=== PATIENT | female | born 1960 | race Caucasian/White ===

== ENCOUNTER 2018-03-05 11:06 | Day surgery (SDC) | payer OTHER, SELFPAY ==
--- NOTE | 2018-02-27 07:22 | EKG12_ITS ---
Test Reason : PREOP Blood Pressure : / mmHG Vent. Rate : 069 BPM Atrial Rate : 069 BPM P-R Int : 188 ms QRS Dur : 108 ms QT Int : 456 ms P-R-T Axes : 045 -20 063 degrees QTc Int : 488 ms Normal sinus rhythm Incomplete left bundle branch block Moderate voltage criteria for LVH, may be normal variant Nonspecific T wave abnormality Prolonged QT Abnormal ECG Confirmed by DELIO ROSA, ARASELI ([id number]), web editor ANGELA POTTER ([id number]) on 02/28/2018 11:34:04 AM Referred By: Jonathan Hopkins Confirmed By:ARASELI KEBEDE MD
[2018-02-27 08:48] LABS: Hematocrit 33.8 % (37-47); Hemoglobin 11.1 g/dl (12.0-15.0); Mean Corp Hgb Conc 32.8 g/gl (32-36); Mean Corpuscular Hgb 30.2 pg (27.0-32.0); Mean Corpuscular Volume 91.8 fL (81-99); Mean Platelet Vol. 9.8 fl (6.2-12.0); Platelet Count 221 K/mm3 (150-450); RBC Distribution Width CV 18.3 % (11.6-14.6); RBC Distribution Width SD 58.7 fl (35.1-43.9); Red Blood Count 3.68 M/mm3 (4.2-5.4); Scan Indicated on CBC? Y/N NO; White Blood Count 5.2 K/mm3 (4.4-11.0)
[2018-02-27 09:11] LABS: Anion Gap 9 (5-15); BUN 13 mg/dL (7-18); BUN/Creat Ratio 19.5 RATIO (10-20); Calcium,Total 9.2 mg/dL (8.5-10.1); Chloride 105 mmol/L (98-107); Creatinine, Serum 0.66 mg/dL (0.55-1.02); EST Glomerular Filtration Rate 98 mL/min (>60); Est Glom Filt Rate - Afr Amer 118 mL/min (>60); Glucose 97 mg/dL (74-106); Potassium 3.2 mmol/L (3.5-5.1); Sodium Level 141 mmol/L (136-145)
[2018-03-05] VITALS (10 sets, daily range): BP systolic 103–129; BP diastolic 63–70; PULSE 64–85; RESP 16–18; TEMP 36–36.9; O2SAT 92–100; BMI 29.7
[2018-03-05] MEDS: Cefazolin 2 GM in 0.9% Normal Saline 100 ML IV (12:50)
--- NOTE | 2018-03-05 12:50 | BREAST_PTH ---
PATIENT: JUANA SMART LOC: [facility] [place] U#:[id number] AGE/SX: 57/F ROOM: RE03/05/[address]: Dr. Jonathan Hopkins MD : 1960 BED: DIS: 03/06/2018 SPEC #: [id number] RECD: 03/05/18 14:24 STATUS: BRIDGET CRISPIN #: [id number] LAKESHIA: 03/05/18 12:[address]: Jonathan Hopkins DEPT: SURGICAL PATHOLOGY RECD BY: Gilmar Boateng ENTERED: 03/05/18 14:56 SP TYPE: BREAST OTHR DR: Dr. 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 See cancer checklist below. AM:antolin 03/10/18 COMMENT INVASIVE BREAST CANCER SUMMARY: Specimen: Total breast with axillary lymph nodes Procedure: Radical mastectomy Specimen integrity: Single intact specimen. Specimen size: 24 x 23 x 5 cm Specimen laterality: Left breast Invasive tumor size: Larges focus 2 x 1 x 1 cm Smaller focus 1.5 x 1 mm Tumor focality: Two foci of invasive carcinoma Macroscopic and Microscopic extent of tumor: Skin: Free of carcinoma Nipple: Microscopic focus of ductal carcinoma (1.5 x 1 mm), see above. Skeletal muscle: Not present Histologic type of invasive carcinoma: Invasive ductal carcinoma Histologic Grade (Mila grade): Glandular/tubular differentiation score: 3 Nuclear pleomorphism score: 3 Mitotic count score: 1 Overall grade: Grade 2-3 (total score of 7) Margins: Uninvolved by invasive carcinoma. Distance from closest (posterior) margin ? 2.5 cm Lymph-Vascular invasion: Not identified Dermal lymph-vascular invasion: Not identified Ductal carcinoma in situ (DCIS): Not identified Lobular carcinoma in situ (LCIS): Not present Lymph nodes: Number of sentinel lymph nodes examined - 0 Total number of lymph nodes examined (sentinel and nonsentinel) ? 11 Number of lymph nodes with macrometastases ? 1 (2.2 cm in greatest dimension). No evidence of extranodal extension Number of lymph nodes with isolated tumor cels - 0 Microcalcifications ? focally present in non-neoplastic tissue Treatment effect ? unknown Additional pathologic findings: Fibrocystic change and focal intraductal hyperplasia without atypia. Ancillary studies: Previously performed on same tumor ([id number] / [id number]). ER: positive (>95% of tumor cells) FL: positive (>95% of tumor cells) Her2 evin: 0 ([facility]) PATHOLOGIC STAGE: pT1c N1a Mx The above summary is in compliance with [employer] [place] [employer] (CAP) Cancer Protocols Checklist and [place] Joint Committee on Cancer (AJCC), Staging Manual, 8th Ed. The mastectomy specimen contains two foci of invasive ductal carcinoma. The largest measures 2 cm in greatest dimension and is located 2.5 cm from the closest posterior margin. The smaller focus is present in the section of the nipple and measures 1.5 mm in greatest dimension. This smaller focus of invasive ductal carcinoma is not noted in the skin or the dermal lymphatics. Case is discussed with Dr. Doyle 04/16/18. MICROSCOPIC DESCRIPTION Slides are reviewed. GROSS DESCRIPTION Received in fixative is one container labeled with the patient's name and designated left breast and axillary contents. The specimen consists of a radical mastectomy specimen consisting of breast tissue and axillary tail tissue. The breast tissue measures 23 x 24 x 5 cm. The overlying skin ellipse measures 20 x 7 cm. The nipple measures up to 2.5 cm in greatest dimension and is inverted. The skin surface shows blue dye discoloration. The axillary tail measures 10 x 8 x 3 cm. The resection margins are inked as follows: superior margin ? blue, inferior margin ? green, medial margin ? red, lateral margin ? orange, posterior surface ? black. Sections of the axillary tail tissue reveal multiple lymph nodes. The largest lymph node measures 3.5 cm in greatest dimension. The lymph nodes are submitted in entirety as follows: 1 & 2 ? one serially sectioned lymph node, 3 & 4 ? one serially sectioned lymph node, 5 & 6 ? one bisected lymph node, 7 ? one bisected lymph node, 8 - one bisected lymph node, 9 ? five lymph nodes, 10 - one bisected lymph node. More dictation will follow after overnight fixation. / SJ:antolin 03/05/18 Serial sections of breast tissue reveal a jensen, indurated mass in the central to inferior portion of the breast tissue measuring 2 x 1 x 1 cm. This mass is 2.5 cm away from the closest posterior margin. Blue dye discoloration is noted in the mass. Sections of the rest of the specimen reveal jensen-yellow adipose cut surfaces mixed with jensen-white fibrous area. No additional mass lesion is identified. More sections are submitted as follows: 11 ? nipple, entirely submitted, 12 ? perpendicular medial, lateral and posterior margin, 13 ? perpendicular medial, lateral margin and skin, 14-18 ? tumor, entirely submitted, 19 ? education courses sales representative section adjacent to the tumor, 20-22 ? education courses sales representative sections away from the tumor. Sections will be submitted after overnight fixation. / SJ:antolin 03/06/18 TC:0 CPT: 82209
--- NOTE | 2018-03-05 12:50 | BREAST_PTH ---
PATIENT: JUANA SMART [place] [facility] [place][id number] AGE/SX: 57/F ROOM: RE03/05/[address]: Dr. Jonathan Hopkins MD : 1960 BED: DIS: 03/06/2018 SPEC #: [id number] RECD: 03/05/18 14:24 STATUS: BRIDGET CRISPIN #: [id number] LAKESHIA: 03/05/18 12:[address]: Jonathan Hopkins DEPT: SURGICAL PATHOLOGY RECD BY: Gilmar Boateng ENTERED: 03/05/18 14:56 SP TYPE: BREAST OTHR DR: Dr. 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 See cancer checklist below. AM:antolin 03/10/18 COMMENT INVASIVE BREAST CANCER SUMMARY: Specimen: Total breast with axillary lymph nodes Procedure: Radical mastectomy Specimen integrity: Single intact specimen. Specimen size: 24 x 23 x 5 cm Specimen laterality: Left breast Invasive tumor size: Larges focus 2 x 1 x 1 cm Smaller focus 1.5 x 1 mm Tumor focality: Two foci of invasive carcinoma Macroscopic and Microscopic extent of tumor: Skin: Free of carcinoma Nipple: Microscopic focus of ductal carcinoma (1.5 x 1 mm), see above. Skeletal muscle: Not present Histologic type of invasive carcinoma: Invasive ductal carcinoma Histologic Grade (Mila grade): Glandular/tubular differentiation score: 3 Nuclear pleomorphism score: 3 Mitotic count score: 1 Overall grade: Grade 2-3 (total score of 7) Margins: Uninvolved by invasive carcinoma. Distance from closest (posterior) margin ? 2.5 cm Lymph-Vascular invasion: Not identified Dermal lymph-vascular invasion: Not identified Ductal carcinoma in situ (DCIS): Not identified Lobular carcinoma in situ (LCIS): Not present Lymph nodes: Number of sentinel lymph nodes examined - 0 Total number of lymph nodes examined (sentinel and nonsentinel) ? 11 Number of lymph nodes with macrometastases ? 1 (2.2 cm in greatest dimension). No evidence of extranodal extension Number of lymph nodes with isolated tumor cels - 0 Microcalcifications ? focally present in non-neoplastic tissue Treatment effect ? unknown Additional pathologic findings: Fibrocystic change and focal intraductal hyperplasia without atypia. Ancillary studies: Previously performed on same tumor ([id number] / [id number]). ER: positive (>95% of tumor cells) CO: positive (>95% of tumor cells) Her2 evin: 0 ([facility]) PATHOLOGIC STAGE: pT1c N1a Mx The above summary is in compliance with [employer] [place] [employer] (CAP) Cancer Protocols Checklist and [place] Joint Committee on Cancer (AJCC), Staging Manual, 8th Ed. The mastectomy specimen contains two foci of invasive ductal carcinoma. The largest measures 2 cm in greatest dimension and is located 2.5 cm from the closest posterior margin. The smaller focus is present in the section of the nipple and measures 1.5 mm in greatest dimension. This smaller focus of invasive ductal carcinoma is not noted in the skin or the dermal lymphatics. Case is discussed with Dr. Doyle 04/16/18. MICROSCOPIC DESCRIPTION Slides are reviewed. GROSS DESCRIPTION Received in fixative is one container labeled with the patient's name and designated left breast and axillary contents. The specimen consists of a radical mastectomy specimen consisting of breast tissue and axillary tail tissue. The breast tissue measures 23 x 24 x 5 cm. The overlying skin ellipse measures 20 x 7 cm. The nipple measures up to 2.5 cm in greatest dimension and is inverted. The skin surface shows blue dye discoloration. The axillary tail measures 10 x 8 x 3 cm. The resection margins are inked as follows: superior margin ? blue, inferior margin ? green, medial margin ? red, lateral margin ? orange, posterior surface ? black. Sections of the axillary tail tissue reveal multiple lymph nodes. The largest lymph node measures 3.5 cm in greatest dimension. The lymph nodes are submitted in entirety as follows: 1 & 2 ? one serially sectioned lymph node, 3 & 4 ? one serially sectioned lymph node, 5 & 6 ? one bisected lymph node, 7 ? one bisected lymph node, 8 - one bisected lymph node, 9 ? five lymph nodes, 10 - one bisected lymph node. More dictation will follow after overnight fixation. / SJ:antolin 03/05/18 Serial sections of breast tissue reveal a jensen, indurated mass in the central to inferior portion of the breast tissue measuring 2 x 1 x 1 cm. This mass is 2.5 cm away from the closest posterior margin. Blue dye discoloration is noted in the mass. Sections of the rest of the specimen reveal jensen-yellow adipose cut surfaces mixed with jensen-white fibrous area. No additional mass lesion is identified. More sections are submitted as follows: 11 ? nipple, entirely submitted, 12 ? perpendicular medial, lateral and posterior margin, 13 ? perpendicular medial, lateral margin and skin, 14-18 ? tumor, entirely submitted, 19 ? community engagement representative section adjacent to the tumor, 20-22 ? community engagement representative sections away from the tumor. Sections will be submitted after overnight fixation. / SJ:antolin 03/06/18 TC:0 CPT: 64290
[2018-03-05] MEDS: Isosulfan Blue 1% 5 ML Vial (13:00)
--- NOTE | 2018-03-05 13:06 | OP.PCM_ITS ---
Problem List (1) Cancer of left female breast Status: Acute Qualifiers: Breast location: upper outer quadrant of breast Estrogen receptor status: positive Qualified Code(s): C50.412 - Malignant neoplasm of upper-outer quadrant of left female breast; Z17.0 - Estrogen receptor positive status [ER+] (2) Regional lymph node metastasis present Status: Acute Report of Operation Date of Procedure: 03/05/18 Pre-Operative Diagnosis: c50.412 malignant neoplasia upper outer quadrant of left breast. z17.0 jejunum receptor positive. c77.3 carcinoma of the left breast metastatic to axillary lymph node Post-Operative Diagnosis: Same Surgery/Procedure Performed:: Left modified radical mastectomy Type of Anesthesia:: General Anesthesiologist: Madi Mccloud Description of Procedure: Patient was brought in the operating room and placed in the supine position. Under excellent general anesthetic left breast was cleaned with alcohol. 5 cc of Lymphazurin blue were injected circumareolar the end massaged for 5 minutes. The breast was then sterilely prepped and draped in the usual fashion. Elliptical incision was made around the nipple areolar complex. Flaps were created with the plasma blade borders of the flaps included the sternum clavicle superiorly rectus abdominis muscle inferiorly I rotated the breast off of the pectoralis major muscle with the use of the plasma blade. Few small perforating vessels were clipped with medium vessel clips. I came to the lateral border of the pectoralis major muscle. I entered the clavipectoral fascia night try to identify blue lymph nodes but I just did not see any I then proceeded to perform a standard axillary node dissection with level 1 and level 2 lymph nodes came to the border of the axillary vein the chest wall medially and posteriorly the latissimus dorsi muscle and the process identified the long thoracic and thoracodorsal nerves. The nodes were matted and I ended up taking the sensory branches to the arm as I removed the axillary lymph nodes. I then rotated the rest of the breast off the lateral aspect of the chest and sent the breast and axillary contents to pathology 1 specimen. I did call pathology and tell them that we were not going to do a frozen section. I irrigated out the wound I reinspected the axilla I did not see or feel any other hard suspicious lymph nodes I irrigated out my field I had good hemostasis to 15 round Carter- [place]rington drains were then placed inferiorly and into the pockets created. There was sutured to the skin with 3-0 nylon. Skin flap was brought together with deep dermal stitches of 3-0 Vicryl interrupted in a running 4-0 Monocryl. Steri -Strips applied sterile dressings were applied and the patient tolerated the procedure well - Admit VTE Documentation VTE Present on Admission: No VTE Mechan Device Prophylaxis: SCD's VTE Pharm Prophylaxis ordered?: No Reason prophylaxis not ordered:: Treatment Not Indicated
[2018-03-05] MEDS: Lactated Ringers 1,000 ML 70 ML IV (16:48)
[2018-03-05] MEDS: proMETHazine 25 MG/ML Syringe IV (17:33)
[2018-03-05] MEDS: oxyCODONE 5 MG Tablet PO (20:40)
[2018-03-05] MEDS: Pravastatin 40 MG Tablet PO (22:38)
[2018-03-05] MEDS: Cefazolin 1 GM/50 ML BAG IV (22:38)
[2018-03-06 00:59] VITALS: PULSE 62
[2018-03-06] MEDS: Lactated Ringers 1,000 ML 70 ML IV (01:35)
[2018-03-06 02:55] VITALS: BP 99/55; PULSE 69; RESP 16; TEMP 36.4; O2SAT 95
[2018-03-06] MEDS: Cefazolin 1 GM/50 ML BAG IV (06:38)
--- NOTE | 2018-03-06 08:43 | PCM.PN.SRG ---
Subjective: Patient evaluated resting comfortably in bed. She denies nausea, vomiting. She notes minimal amount of incisional discomfort. - Physical Exam General: Alert, Oriented x3, Cooperative Skin: Incision - Left chest incision- c/d/i. No erythema or infection noted. Dressing intact. ANNABEL drain intact with bloody drainage. Vital Signs Temp Pulse Resp BP Pulse Ox 97.6 F L 69 16 99/55 L 95 03/06/18 02:55 03/06/18 02:55 03/06/18 02:55 03/06/18 02:55 03/06/18 02:55 Oxygen Flow Rate (L/min) 2 Oxygen Delivery Method Room Air Weight: 173 lb 1.006 oz Body Mass Index (BMI) 29.7 Intake and Output for Last 24 Hours 03/04/18 03/05/18 03/06/18 23:59 23:59 23:59 Intake Total 1200 / 1200 942 / 942 Output Total 200 / 200 840 / 840 Balance 1000 / 1000 102 / 102 Medical Necessity - Tobacco Use Smoking Status: Former smoker Assessment/Plan I am following this patient in conjunction with Dr. Hopkins S/p left modified radical mastectomy Ready for discharge
--- NOTE | 2018-03-06 08:47 | PCM.DC.BS ---
Discharge Diet: No Restrictions Discharge Activity: May Not Drive - for 5 days or while taking narcotic pain meds. Lifting Restrictions: 10 pounds for 4 weeks. Call your doctor if your incision/area has: Continuous Slow Oozing, Sudden Increased Bleeding Call your doctor if you observe: Fever of 101 or Higher Suture Line Care: Avoid Pulling/Pushing, Avoid Pinching/Bending Remove Dressing in (days):: 1 - Remove bulky dressing tomorrow. May leave any opsite dressing for 3-4 days. Keep dressing in place until your follow-up appointment. Cleanse incision/area with: Do not get Incision Wet Additional Dressing/Incision Instructions:: Keep dressing in place until your follow-up appointment. Allergies/Adverse Reactions: Allergies No Known Allergies Allergy (Verified 02/27/18 08:15) Medications to take at Discharge atenolol 25 mg tablet 25 mg PO DAILY tab 10/29/17 pravastatin 40 mg tablet 40 mg PO QHS 10/29/17 spironolactone 25 mg-hydrochlorothiazide 25 mg tablet 1 tab PO QDAY 10/29/17 Potassium Chloride [Klor-Con 10] 10 meq PO DAILY 11/08/17 Lidocaine/Prilocaine [Lidocaine-Prilocaine Cream] 30 gm TP DAILY PRN PRN #1 cream..g. 12/03/17 Ondansetron HCl [Zofran] 4 mg PO Q8H PRN PRN #30 tab 12/03/17 Anastrozole [Arimidex] 1 mg PO DAILY 30 Days #30 tab 02/27/18 Oxycodone [Oxyir] 5 mg PO Q4H PRN PRN 5 Days #20 tablet 03/06/18 The following prescriptions were given: Oxycodone [Oxyir] 5 mg PO Q4H PRN PRN 5 Days #20 tablet PRN Reason: Pain Primary Care Physician: Enoc Vences MD [Primary Care Provider] - Please Follow Up With: Leela Lopez PA-C - [phone] When: Saturday; 03/10 Please Follow Up With: Jonathan Hopkins MD - [phone] When: Saturday; 03/12 Proposed Discharge Date: 03/06/18
--- NOTE | 2018-03-06 08:50 | DCINST_ITS ---
Discharge Diet: No Restrictions Discharge Activity: May Not Drive - for 5 days or while taking narcotic pain meds. Lifting Restrictions: 10 pounds for 4 weeks. Call your doctor if your incision/area has: Continuous Slow Oozing, Sudden Increased Bleeding Call your doctor if you observe: Fever of 101 or Higher Suture Line Care: Avoid Pulling/Pushing, Avoid Pinching/Bending Remove Dressing in (days):: 1 - Remove bulky dressing tomorrow. May leave any opsite dressing for 3-4 days. Keep dressing in place until your follow-up appointment. Cleanse incision/area with: Do not get Incision Wet Additional Dressing/Incision Instructions:: Keep dressing in place until your follow-up appointment. Allergies/Adverse Reactions: Allergies No Known Allergies Allergy (Verified 02/27/18 08:15) Medications to take at Discharge atenolol 25 mg tablet 25 mg PO DAILY tab 10/29/17 pravastatin 40 mg tablet 40 mg PO QHS 10/29/17 spironolactone 25 mg-hydrochlorothiazide 25 mg tablet 1 tab PO QDAY 10/29/17 Potassium Chloride [Klor-Con 10] 10 meq PO DAILY 11/08/17 Lidocaine/Prilocaine [Lidocaine-Prilocaine Cream] 30 gm TP DAILY PRN PRN #1 cream..g. 12/03/17 Ondansetron HCl [Zofran] 4 mg PO Q8H PRN PRN #30 tab 12/03/17 Anastrozole [Arimidex] 1 mg PO DAILY 30 Days #30 tab 02/27/18 Oxycodone [Oxyir] 5 mg PO Q4H PRN PRN 5 Days #20 tablet 03/06/18 The following prescriptions were given: Oxycodone [Oxyir] 5 mg PO Q4H PRN PRN 5 Days #20 tablet PRN Reason: Pain Primary Care Physician: Enoc Vences MD [Primary Care Provider] - Please Follow Up With: Leela Lopez PA-C - [phone] When: Saturday; 03/10 Please Follow Up With: Jonathan Hopkins MD - [phone] When: Saturday; 03/12 Proposed Discharge Date: 03/06/18
[2018-03-06 09:46] VITALS: BP 105/53; PULSE 88; RESP 16; TEMP 36.3; O2SAT 97
[2018-03-06] MEDS: Spironolactone 25 MG Tablet PO (09:51)
[2018-03-06] MEDS: hydroCHLOROthiazide 25 MG Tablet PO (09:52)
[2018-03-06] MEDS: Atenolol 25 MG Tablet PO (09:52)
--- NOTE | 2018-03-06 10:48 | NURSING ---
Reviewed dressing and drain care with patient and . 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 aware that the drainage needs to be recorded and the form taken to follow up appointment. Reviewed the mastectomy teaching packet. patient slightly tearful with the dressing change after looking at the incision. emotional support provided. discussed Reach to Recovery program through [facility], local support groups, etc. Pt and deny questions.
[2018-03-06] MEDS: oxyCODONE 5 MG Tablet PO (11:36)
== END 2018-03-06 11:53 | disposition home or self-care (01) ==
LOC: SDC 11:07 → AC 11:08 → MS3 03-06 12:13
PROVIDERS: Family Provider Family Medicine; PCP Family Medicine; Visit Provider Surgery
PROC: (CPT 19307; principal; 2018-03-05 12:35)
DX: C50.412 Malignant neoplasm of upper-outer quadrant of left female breast (principal); C77.3 Secondary and unspecified malignant neoplasm of axilla and upper limb lymph nodes; Z17.0 Estrogen receptor positive status [ER+]; I44.7 Left bundle-branch block, unspecified; I10 Essential (primary) hypertension; E78.00 Pure hypercholesterolemia, unspecified; E87.6 Hypokalemia; E88.81 Metabolic syndrome and other insulin resistance; Z89.612 Acquired absence of left leg above knee; Z85.830 Personal history of malignant neoplasm of bone; Z79.899 Other long term (current) drug therapy; Z87.891 Personal history of nicotine dependence
CPT/HCPCS: 19307; 36415; 80048; 85027; 88309; 93005; 97161; J7120; A4216; J2405; Q9968

== ENCOUNTER → 2018-04-15 14:32 | Outpatient (CLI) | payer OTHER, SELFPAY ==
[2018-04-10 08:51] VITALS: BMI 28.8
--- NOTE | 2018-04-15 14:41 | BD_ITS ---
STUDY: DUAL ENERGY X-RAY ABSORPTIOMETRY / DXA REASON FOR EXAM: Female, 57 years old. Known breast cancer. No loss of height. The patient is postmenopausal. TECHNIQUE: Bone Mineral Density (BMD) measurements of lumbar spine and bilateral hips were obtained. COMPARISON: None. FINDINGS: Lumbar Spine (L1-L4): g/cm2 (1.151) / T-score (-0.2) / Z-score (0.7) Findings are suggestive of normal bone density with a low fracture risk. Left Femur Total: g/cm2 (0.594) / T-score (-3.3) / Z-score (-2.6) Left Femoral Neck: g/cm2 (0.567) / T-score (-3.4) / Z-score (-2.3) Right Femur Total: g/cm2 (0.994) / T-score (-0.1) / Z-score (0.6) Right Femoral Neck: g/cm2 (0.862) / T-score (-1.3) / Z-score (-0.2) BD/Dexa Bone Density Study IMPRESSION: The patient is considered osteoporotic as outlined below according to World Paul Organization (WHO) criteria with a high fracture risk. Reference Information: The T-score is the number of standard deviations above or below the standard which is normal for young adults at their peak bone mineral density. The World Health Organization (WHO) interprets the T-scores as follows: Above -1 Normal bone density Between -1 and -2.5 Osteopenia Equal to / or below -2.5 Osteoporosis As a practical clinical guideline, osteopenia may be graded as follows: Mild -1 through -1.5 Moderate -1.6 through -2.0 Severe -2.1 through -2.4 The Z-score is the number of standard deviations above or below age-matched controls. A Z-score of less than -1.5 would be considered abnormal. References: 1. NIH Osteoporosis and Related Bone Diseases http://www.osteo.org 2. International Society for Clinical Densitometry http://www.iscd.org 3. National Osteoporosis Foundation http://www.nof.org Electronically Signed: Albaro Atkinson MD at 15:17 EDT Tel [phone], Service support ,
== END ==
PROVIDERS: Family Provider Family Medicine; PCP Family Medicine; Visit Provider Internal Medicine Hematology & Oncology
DX: M81.0 Age-related osteoporosis without current pathological fracture (principal); C50.912 Malignant neoplasm of unspecified site of left female breast; C77.9 Secondary and unspecified malignant neoplasm of lymph node, unspecified; Z78.0 Asymptomatic menopausal state; Z79.899 Other long term (current) drug therapy
CPT/HCPCS: 77080

== ENCOUNTER 2018-08-22 10:00 | Outpatient (RCR) | payer OTHER, SELFPAY ==
[2018-04-10 08:51] VITALS: BMI 28.8
--- NOTE | 2018-07-10 10:16 | HP.OTEVAL_ITS ---
Patient's Visit Information JUANA SMART is a 57 year old F, referred to Occupational Therapy by Akhil Doyle DO, with a diagnosis of Malignant neoplasm of unspecified site of left female breast. Date of Evaluation: 07/09/18 Occupational Therapist: Sofia Quinn OTR/Loretta, CHT - Subjective Subjective: Pt states she had 10-11 lymph nodes removed with 1 +. Pt states her mastectomy was done in February and she completed her radiation. Pt states she is back to work but has noticed she is still tire. Pt states she does walk to get some exercis. Pt states she has not been doing her ROM ex for her UB or posture. Pt would like to know where to start with some exercises and understand signs and symptoms of lymphedema. - Pain Left Axillary 3 Pain Intensity Range: 1, 5 - ROM ROM Comments: Pt demo ROM WNL - Lymphedema (Circumferential Measure) MCP: right 20.3cm left 19cm Wrist: right 17.5cm left 16cm Lower forearm: right 22cm left 20cm Largest forearm: right 26cm left 25cm Elbow: right 26cm left 26cm Largest humerus: right 31cm left 28cm Axcillary: right 35cm left 33.5cm - Goals Demonstrate adequate knowledge skin care/prec by 2nd week: Yes Demonstrate adequate knowledge therapeutic exercises by d/c: Yes Select approp compression garment w/donning/care/wear by d/c: Yes Voice need to replace compression garment every 4-6mo by dc: Yes Goal:: pt will demo understanding of lymphedema signs and symptoms and return to Dr. for tx. if symptoms arise. Goal:: pt will report a increase in her ability to perform her work and IADL tasks without fatigue by d/c Goal:: pt will demo understanding of HEP by 2nd visit. - Rehabilitation General Assessment: This pt arrives to OT following her cancer tx. pt would benefit from an exercise program to increase pts energy levels to return to her PLOF with work, home and leisure tasks. Today pt was ed. on lymphedema signs and symptoms, skin care and precautions. Pt will be flying out to visit family the end of Jul. and will need a compression sleeve to wear as a precautionary measure- pt ed. on need for sleeve with travel, she demo understanding. pt was given handouts on ROM exercises for UB and UB strengthening ex. pt given handouts and instructed to initiate 3 exercises a day starting with 2 sets of 6 and working up to 2 sets of 10 and a gradual addition of the other exercises. pt demo understanding and will return for follow up in two- three weeks. Rehabilitation Potential: Excellent - Anticipated Interventions Anticipated Interventions: A/AAROM/PROM, Strengthening, Manual Lymph Drainage, Education re Life-long lymphedema Management, Education re Correct Donning Tech, Care&Wearing Sched Comp Garments, Home Program - Visit Plan Frequency: one visit in two weeks TEXT: Thank you for the opportunity to evaluate your patient. For Medicare and Medicare HMO plans, please review the plan of care and approve it. It will need to be FAXED BACK to us at [phone] for Medicare purposes. Please let me know if there are questions or concerns regarding this plan of care. Physician Signature: Date:
--- NOTE | 2018-08-22 11:20 | HP.OTDCSUM_ITS ---
HP - OT D/C Summary It has been my pleasure to treat JUANA SMART under orders from Akhil Doyle DO, for the diagnosis of Malignant neoplasm of unspecified site of left female breast for a total of 5 visit(s). Please see the following information for a summary of their discharge status. - Objective Objective/Function: pt demo full ROM and no increase in measurments of edema- pt demo understanding of her HEP-pt is to cont with HEP and use of compression sleeve during flights - Goals Patient Goals: Regain Strength, Resume Former Household Responsibilities (Cooking,Cleaning,Yard, etc.), Resume Hobbies Other: learn about lymphedema precautions Demonstrate adequate knowledge skin care/prec by 2nd week: Yes Demonstrate adequate knowledge therapeutic exercises by d/c: Yes Select approp compression garment w/donning/care/wear by d/c: Yes Voice need to replace compression garment every 4-6mo by dc: Yes Goal:: pt will demo understanding of lymphedema signs and symptoms and return to DrBrett for tx. if symptoms arise. Goal:: pt will report a increase in her ability to perform her work and IADL tasks without fatigue by d/c Goal:: pt will demo understanding of HEP by 2nd visit. - Plan Plan: D/C with HEP - D/C Information Discharge Comments: pt was seen for 5 therapy visits- pt was provided with ed.on lymphedema signs/symptoms and use of compression garment with travel filghts- pt was given HEP to incrase her endurance and functional strength- pt D/C with HEP and will schedule with retail personal banker for cont. instruction with HEP If there are questions or concerns regarding this patient's occupational therapy, please fell free to call me at [phone]. Thank you for the referral of this patient. Sincerely, Sofia Quinn, OTR/L, CHT
== END 2018-08-22 19:00 | disposition home or self-care (01) ==
LOC: OT 10:00
PROVIDERS: Family Provider Family Medicine; PCP Family Medicine; Visit Provider Student in an Organized Health Care Education/Training Program
DX: C50.912 Malignant neoplasm of unspecified site of left female breast (principal)
CPT/HCPCS: 97110; 97140; 97166; 97168

== ENCOUNTER → 2018-10-20 15:41 | Outpatient (CLI) | payer OTHER, SELFPAY ==
[2018-04-10 08:51] VITALS: BMI 28.8
[2018-10-01 14:54] VITALS: BMI 27.8
--- NOTE | 2018-10-20 15:43 | BI_ITS ---
MAMMOGRAPHY - UNILATERAL DIAGNOSTIC: RIGHT BREAST REASON FOR EXAM: Female, 57 years old. Prior left mastectomy with chemotherapy and radiation therapy. PERTINENT HISTORY: Personal history of breast cancer. TECHNIQUE: Digital unilateral breast zayra (3D mammographic acquisition) in the CC and MLO projections. 2-D mediolateral oblique (MLO) and craniocaudad (CC) views of both breasts were obtained. CAD: Full Field Digital Mammography with Computer Added Detection was performed. COMPARISON: Comparison is made with prior study dated October 18, 2017. FINDINGS: Breast Composition: There are scattered areas of fibroglandular density. There are no dominant masses or suspicious calcifications. No other significant abnormalities are identified. There has been no significant change since the prior study. BI/UNILAT RT SCRN W/CAD IMPRESSION: Stable unilateral diagnostic mammogram. One year follow-up mammogram recommended. (A) ASSESSMENT CATEGORY: BIRADS Category 1: Negative. A letter regarding these results will be sent to the patient by the facility within 30 days. Approximately 10% of breast cancers are not detected by mammography. A normal mammogram should not delay biopsy of a clinically suspicious abnormality. Electronically Signed: Albaro Atkinson MD at 13:12 EST Tel [phone], Service support ,
== END ==
PROVIDERS: Family Provider Family Medicine; PCP Family Medicine; Referring Provider Student in an Organized Health Care Education/Training Program; Visit Provider Student in an Organized Health Care Education/Training Program
DX: C50.912 Malignant neoplasm of unspecified site of left female breast (principal); Z12.31 Encounter for screening mammogram for malignant neoplasm of breast
CPT/HCPCS: 77061; 77067; G0279

== ENCOUNTER → 2019-10-21 06:54 | Outpatient (CLI) | payer BC, OTHER, SELFPAY ==
[2018-04-10 08:51] VITALS: BMI 28.8
[2019-04-06 14:51] VITALS: BMI 27.9
[2019-10-05 15:11] VITALS: BMI 27.3
--- NOTE | 2019-10-21 06:57 | BI_ITS ---
MAMMOGRAPHY - UNILATERAL SCREENING: RIGHT BREAST REASON FOR EXAM: Female, 58 years old. Routine annual screening examination (unilateral). PERTINENT HISTORY: Personal history of breast cancer. Prior left mastectomy with chemotherapy and radiation therapy. TECHNIQUE: Digital unilateral breast rosa (3D mammographic acquisition) in the CC and MLO projections. 2-D mediolateral oblique (MLO) and craniocaudad (CC) views of both breasts were obtained. CAD: Full Field Digital Mammography with Computer Added Detection was performed. COMPARISON: Comparison is made with prior examination dated October 20, 2018. FINDINGS: Breast Composition: There are scattered areas of fibroglandular density. There are no dominant masses or suspicious calcifications. There now is a 8 mm well-defined nodule in the anterior superior slightly lateral aspect of the right breast. Correlation with ultrasound is recommended. No other significant abnormalities are identified. BI/SCREEN MAMM (CAD) W/ROSA UNI R IMPRESSION: 8 mm well-defined nodule in the anterior lateral periareolar region of the right breast as described. Correlation with ultrasound is recommended. ASSESSMENT CATEGORY: BIRADS Category 0: Incomplete. Need additional imaging evaluation. A letter regarding these results will be sent to the patient by the facility within 30 days. Approximately 10% of breast cancers are not detected by mammography. A normal mammogram should not delay biopsy of a clinically suspicious abnormality. [id number] Electronically Signed: Albaro Atkinson, at 10:41 EST , Service support ,
== END ==
PROVIDERS: Family Provider Family Medicine; PCP Family Medicine; Referring Provider Student in an Organized Health Care Education/Training Program; Visit Provider Student in an Organized Health Care Education/Training Program
DX: Z12.31 Encounter for screening mammogram for malignant neoplasm of breast (principal); Z85.3 Personal history of malignant neoplasm of breast; Z90.12 Acquired absence of left breast and nipple
CPT/HCPCS: 77063; 77067

== ENCOUNTER → 2019-10-22 12:14 | Outpatient (CLI) | payer BC, SELFPAY ==
[2018-04-10 08:51] VITALS: BMI 28.8
[2019-10-05 15:11] VITALS: BMI 27.3
--- NOTE | 2019-10-22 12:16 | US_ITS ---
STUDY: ULTRASOUND BREAST - RIGHT REASON FOR EXAM: Female, 58 years old. Abnormal screening mammogram. TECHNIQUE: Axial and longitudinal images of the RIGHT breast were performed with a high resolution ultrasound transducer. # OF IMAGES: 30 COMPARISON: Comparison is made with prior mammogram dated October 21, 2019. FINDINGS: RIGHT Breast: The mammographic abnormality corresponds to a mild degree of dilated retroareolar ducts. US/Breast Limited Unilateral IMPRESSION: Mildly dilated retroareolar ducts. Routine annual mammographic follow-up is recommended. ASSESSMENT CATEGORY: BIRADS Category 2: Benign. A letter regarding these results will be sent to the patient by the facility within 30 days. Electronically Signed: Albaro Atkinson, at 11:30 EST , Service support ,
== END ==
PROVIDERS: Family Provider Family Medicine; PCP Family Medicine; Referring Provider Student in an Organized Health Care Education/Training Program; Visit Provider Student in an Organized Health Care Education/Training Program
DX: R92.8 Other abnormal and inconclusive findings on diagnostic imaging of breast (principal)
CPT/HCPCS: 76642

== ENCOUNTER → 2020-04-19 15:45 | Outpatient (CLI) | payer BC, SELFPAY ==
[2018-04-10 08:51] VITALS: BMI 28.8
[2020-04-05 15:34] VITALS: BMI 27.6
[2020-04-05 16:38] VITALS: BMI 27.6
--- NOTE | 2020-04-19 15:53 | BD_ITS ---
STUDY: DUAL ENERGY X-RAY ABSORPTIOMETRY / DXA REASON FOR EXAM: Female, 59 years old. AUTO PARKER-SURGICAL EARLY AT 43 YRS OLD -- CURRENTLY ON AROMATASE INHIBITOR FOR BREAST CANCER -- HX OF SMOKING -- TAKES HCTZ -- TAKES CALCIUM AND VITAMIN D -- HAS BEEN ON PROLIA x1.5 YRS -- DOES MODERATE AMOUNT OF EXERCISE -- HX OF LEFT HIP FX LAST YEAR WITH FEMUR RODDING -- LINNETTE OF 0.25 INCH TECHNIQUE: Bone Mineral Density (BMD) measurements of lumbar spine and right hip were obtained. COMPARISON: Comparison is made with prior examination dated April 15, 2018. FINDINGS: Lumbar Spine (L1-L4): g/cm2 (1.58) / T-score (0.7) / Z-score (1.8) Findings are suggestive of with a fracture risk. Right Femur Total: g/cm2 (1.005) / T-score (0.0) / Z-score (0.8) Right Femoral Neck: g/cm2 (0.932) / T-score (-0.8) / Z-score (0.4) The T-Scores on the most recent prior examination were: Lumbar Spine (L1-L4): There has been improvement of bone density since the previous examination. Right Femur Total: which represents an improvement of 1.1%. BD/Dexa Bone Density Study IMPRESSION: The patient is considered normal as outlined below according to World Paul Organization (WHO) criteria with a low fracture risk. There has been improvement of bone density since the previous examination. Reference Information: The T-score is the number of standard deviations above or below the standard which is normal for young adults at their peak bone mineral density. The World Health Organization (WHO) interprets the T-scores as follows: Above -1 Normal bone density Between -1 and -2.5 Osteopenia Equal to / or below -2.5 Osteoporosis As a practical clinical guideline, osteopenia may be graded as follows: Mild -1 through -1.5 Moderate -1.6 through -2.0 Severe -2.1 through -2.4 The Z-score is the number of standard deviations above or below age-matched controls. A Z-score of less than -1.5 would be considered abnormal. References: 1. NIH Osteoporosis and Related Bone Diseases http://www.osteo.org 2. International Society for Clinical Densitometry http://www.iscd.org 3. National Osteoporosis Foundation http://www.nof.org Electronically Signed: Albaro Atkinson, at 15:08 EDT , Service support ,
== END ==
PROVIDERS: PCP Family Medicine; Referring Provider Internal Medicine Hematology & Oncology; Visit Provider Internal Medicine Hematology & Oncology
DX: C50.912 Malignant neoplasm of unspecified site of left female breast (principal); M81.0 Age-related osteoporosis without current pathological fracture
CPT/HCPCS: 77080

== ENCOUNTER → 2020-06-06 14:47 | Outpatient (CLI) | payer BC, SELFPAY ==
[2018-04-10 08:51] VITALS: BMI 28.8
[2020-05-13 08:46] VITALS: BMI 27.3
--- NOTE | 2020-06-06 14:49 | ECHOD_ITS ---
Reason For Study: Murmur Procedure This was a 2D Doppler, Color Flow transthoracic echocardiogram. Myocardial strain analysis was performed in this exam to aid in the assessment of cardiac function. Techncially difficult, patient has a hard time staying on left side due to previously broken left hip. Exam performed in department. Left Ventricle Normal size and thickness. Mild concentric left ventricular hypertrophy. Left ventricular systolic function is normal. The estimated ejection fraction is 53 %. Septal motion consistent with IVCD. No regional wall motion abnormalities noted. Right Ventricle Normal RV size. Normal systolic function. Atria Normal left atrium. Normal right atrium. Mitral Valve Bileaflet diffuse mitral valve thickening. Moderate (2+) eccentric mitral valve insufficiency. Tricuspid Valve Normal tricuspid valve. Mild (1+) tricuspid valve insufficiency. Pulmonary artery systolic pressure is 34 mmHg. Aortic Valve Trisinus/trileaflet aortic valve. Mild focal aortic valve calcification. Peak aortic valve gradient 33 mmHg. Mean aortic valve gradient 17 mmHg. Moderate aortic stenosis. Calculated aortic valve area (continuity equation) is 0.9 cm2. Mild (1+) aortic valve insufficiency. Pulmonic Valve Normal pulmonic valve. Great Vessels Normal aortic root. The pulmonary artery is normal size. Normal inferior vena cava. Pericardium/Pleural No pericardial effusion. MMode/2D Measurements & Calculations LVIDd: 3.9 cm IVSd: 1.4 cm LVOT diam: 2.0 cm LVIDs: 3.2 cm LVPWd: 1.4 cm LVOT area: 3.0 cm2 RVDd: 3.3 cm FS: 17.6 % LA dimension: 4.1 cm LAV(MOD-bp): 49.9 ml LA A4 area: 19.4 cm2 LAV(MOD-bp) Indexed: 28.3 ml/m2 LAV(MOD-sp2): 44.2 ml LAV(MOD-sp4): 56.7 ml RA A4 area: 13.5 cm2 Time Measurements MV dec time: 0.23 sec Doppler Measurements & Calculations MV E max eliu: 112.7 cm/sec Lat Peak E' Eliu: 6.8 cm/sec Med Peak E' Eliu: 5.3 cm/sec MV A max eliu: 85.2 cm/sec E/E' lat: 16.5 E/E' med: 21.3 MV E/A: 1.3 MV V2 max: 127.1 cm/sec MV P1/2t max eliu: 129.0 cm/sec Ao V2 max: 290.1 cm/sec MV max P.5 mmHg MV P1/2t: 117.7 msec Ao max P.7 mmHg MV V2 mean: 75.6 cm/sec MV dec slope: 321.1 cm/sec2 Ao V2 mean: 190.1 cm/sec MV mean P.7 mmHg Ao mean P.0 mmHg MV V2 VTI: 36.8 cm MVA(P1/2t): 1.9 cm2 Ao V2 VTI: 59.8 cm MVA(VTI): 1.5 cm2 ANN(I,D): 0.89 cm2 ANN(V,D): 0.90 cm2 LV V1 max: 86.6 cm/sec MR max eliu: 567.8 cm/sec SV(LVOT): 53.5 ml LV V1 max P.0 mmHg MR max P.0 mmHg LV V1 mean P.4 mmHg MR mean eliu: 415.6 cm/sec LV V1 mean: 55.4 cm/sec MR mean P.6 mmHg LV V1 VTI: 17.7 cm MR VTI: 213.7 cm PA V2 max: 101.1 cm/sec TR max eliu: 270.1 cm/sec TR max P.2 mmHg Interpretation Summary Normal size and thickness. Left ventricular systolic function is normal. The estimated ejection fraction is 53 %. Septal motion consistent with IVCD. Moderate (2+) eccentric mitral valve insufficiency. Pulmonary artery systolic pressure is 34 mmHg. Moderate aortic stenosis. Calculated aortic valve area (continuity equation) is 0.9 cm2. Mild concentric left ventricular hypertrophy. The global longitudinal strain is mildly abnormal. The global longitudinal strain = -15.4% (abnormal). Ordering Physician: Chung Bailey Referring Physician: Enoc Vences Performed By: Pedro Aparicio RCS
== END ==
PROVIDERS: PCP Family Medicine; Referring Provider Internal Medicine Cardiovascular Disease; Visit Provider Internal Medicine Cardiovascular Disease
DX: I35.0 Nonrheumatic aortic (valve) stenosis (principal)
CPT/HCPCS: 93306

== ENCOUNTER → 2020-11-01 07:17 | Outpatient (CLI) | payer BC, SELFPAY ==
[2018-04-10 08:51] VITALS: BMI 28.8
[2020-10-10 14:39] VITALS: BMI 27.1
--- NOTE | 2020-11-01 07:18 | BI_ITS ---
MAMMOGRAPHY - UNILATERAL SCREENING: RIGHT BREAST REASON FOR EXAM: Female, 59 years old. Routine annual screening examination (unilateral). PERTINENT HISTORY: Personal history of breast cancer. Prior left mastectomy with chemotherapy and radiation therapy. TECHNIQUE: Digital unilateral breast rosa (3D mammographic acquisition) in the CC and MLO projections. 2-D mediolateral oblique (MLO) and craniocaudad (CC) views of both breasts were obtained. CAD: Full Field Digital Mammography with Computer Added Detection was performed. COMPARISON: Comparison is made with prior examination dated 10/21/2019 and 10/20/2018. FINDINGS: Breast Composition: There are scattered areas of fibroglandular density. There are no dominant masses or suspicious calcifications. No other significant abnormalities are identified. There has been no significant change since the prior study. BI/SCREEN MAMM (CAD) W/ROSA UNI R IMPRESSION: Stable unilateral screening mammogram. Yearly follow-up mammogram recommended. (A) ASSESSMENT CATEGORY: BIRADS Category 1: Negative. A letter regarding these results will be sent to the patient by the facility within 30 days. Approximately 10% of breast cancers are not detected by mammography. A normal mammogram should not delay biopsy of a clinically suspicious abnormality. [id number] Electronically Signed: Albaro Atkinson, at 8:28 EST , Service support ,
== END ==
PROVIDERS: PCP Family Medicine; Referring Provider Internal Medicine Hematology & Oncology; Visit Provider Internal Medicine Hematology & Oncology
DX: Z12.31 Encounter for screening mammogram for malignant neoplasm of breast (principal); C50.912 Malignant neoplasm of unspecified site of left female breast
CPT/HCPCS: 77063; 77067

== ENCOUNTER → 2021-05-12 10:50 | Outpatient (CLI) | payer BC, SELFPAY ==
[2021-04-10 15:56] VITALS: BMI 28.8
[2021-05-12 08:50] VITALS: BMI 27.1
[2021-05-12 11:47] LABS: Anion Gap 8 (5-15); BUN 13 mg/dL (7-18); BUN/Creat Ratio 18.8 RATIO (10-20); Calcium,Total 9.8 mg/dL (8.5-10.1); Chloride 105 mmol/L (98-107); Creatinine, Serum 0.69 mg/dL (0.55-1.02); EST Glomerular Filtration Rate 92 mL/min (>60); Est Glom Filt Rate - Afr Amer 111 mL/min (>60); Glucose 91 mg/dL (74-106); Potassium 3.6 mmol/L (3.5-5.1); Sodium Level 140 mmol/L (136-145)
== END ==
PROVIDERS: PCP Family Medicine; Referring Provider Internal Medicine Cardiovascular Disease; Visit Provider Internal Medicine Cardiovascular Disease
DX: I35.0 Nonrheumatic aortic (valve) stenosis (principal); I10 Essential (primary) hypertension
CPT/HCPCS: 36415; 80048

== ENCOUNTER → 2021-05-25 07:52 | Outpatient (CLI) | payer BC, SELFPAY ==
[2021-04-10 15:56] VITALS: BMI 28.8
[2021-05-12 08:50] VITALS: BMI 27.1
== END ==
PROVIDERS: PCP Family Medicine; Referring Provider Internal Medicine Cardiovascular Disease; Visit Provider Internal Medicine Cardiovascular Disease
DX: I34.0 Nonrheumatic mitral (valve) insufficiency (principal); R01.1 Cardiac murmur, unspecified
CPT/HCPCS: 93306; 93356

== ENCOUNTER → 2021-07-11 09:42 | Outpatient (CLI) | payer BC, SELFPAY ==
[2021-04-10 15:56] VITALS: BMI 28.8
[2021-07-11 10:54] LABS: BNP,B-Type NATRIURETIC PEPTIDE 79.5 pg/mL (0-100)
== END ==
PROVIDERS: PCP Family Medicine; Referring Provider Internal Medicine Cardiovascular Disease; Visit Provider Internal Medicine Cardiovascular Disease
DX: I35.0 Nonrheumatic aortic (valve) stenosis (principal); I34.0 Nonrheumatic mitral (valve) insufficiency; I10 Essential (primary) hypertension; E78.2 Mixed hyperlipidemia; I44.7 Left bundle-branch block, unspecified; C50.412 Malignant neoplasm of upper-outer quadrant of left female breast; C77.9 Secondary and unspecified malignant neoplasm of lymph node, unspecified; M81.8 Other osteoporosis without current pathological fracture; C41.9 Malignant neoplasm of bone and articular cartilage, unspecified; E87.6 Hypokalemia; Z17.0 Estrogen receptor positive status [ER+]
CPT/HCPCS: 36415; 83880

== ENCOUNTER → 2021-10-20 11:18 | Outpatient (CLI) | payer BC, SELFPAY ==
[2021-04-10 15:56] VITALS: BMI 28.8
[2021-10-20 12:12] LABS: AST(SGOT) 26 U/L (15-37); Alanine Aminotransfer ALT/SGPT 24 U/L (13-56); Albumin, Serum 3.6 g/dL (3.2-5.0); Alkaline Phosphatase 66 U/L (45-117); Anion Gap 7 (5-15); BUN 11 mg/dL (7-18); Bilirubin, Direct 0.15 mg/dL (0.00-0.30); Calcium,Total 10.1 mg/dL (8.5-10.1); Chloride 106 mmol/L (98-107); Cholesterol 189 mg/dL (200); Creatinine, Serum 0.69 mg/dL (0.55-1.02); EST Glomerular Filtration Rate 93 mL/min (>60); Est Glom Filt Rate - Afr Amer 112 mL/min (>60); Globulin 4.2 g/dL (2.2-4.2); Glucose 86 mg/dL (74-106); High Density Lipoprotein 46 mg/dL; Magnesium 2.3 mg/dL (1.6-2.6); Potassium 3.2 mmol/L (3.5-5.1); Protein, Total 7.8 g/dL (6.4-8.2); Sodium Level 140 mmol/L (136-145); Triglycerides 212 mg/dL; Very Low Density Lipoprotein 42 mg/dL (5-40)
== END ==
PROVIDERS: PCP Family Medicine; Referring Provider Internal Medicine Cardiovascular Disease; Visit Provider Internal Medicine Cardiovascular Disease
DX: I10 Essential (primary) hypertension (principal); E78.2 Mixed hyperlipidemia; I35.0 Nonrheumatic aortic (valve) stenosis
CPT/HCPCS: 36415; 80048; 80061; 80076; 83735; 83880

== ENCOUNTER → 2021-10-23 17:23 | Outpatient (CLI) | payer BC, SELFPAY ==
[2021-04-10 15:56] VITALS: BMI 28.8
--- NOTE | 2021-10-23 17:26 | CT_ITS ---
EXAM: CT CHEST WITH INTRAVENOUS CONTRAST CLINICAL INDICATION: Dyspnea, history of breast cancer and sarcoma TECHNIQUE: Helically acquired images were obtained of the chest with intravenous contrast. This CT exam was performed using one or more of the following dose reduction techniques: automated exposure control, adjustment of the mA and/or kV according to patient size, and/or use of iterative reconstruction technique. This report was created using [employer] report generation technology. CONTRAST: IV 100mL Isovue-370 COMPARISON: 5.29.18 FINDINGS: LUNGS AND PLEURAL SPACES: Bilateral pleural effusions. Along the left upper lobe pleural space, there is an infiltrate measuring 46 x 14 mm. Neoplastic process is difficult to exclude given the patient''s history. No mass. No pneumothorax. HEART: Unremarkable. Heart size is normal. No pericardial effusion. MEDIASTINUM: Unremarkable. No mediastinal or hilar adenopathy. Esophagus is unremarkable. No hiatal hernia. THYROID: Unremarkable. No thyroid lesions. BONES/JOINTS: Unremarkable. No suspicious lytic or blastic abnormality. SOFT TISSUES: Left mastectomy changes. VASCULATURE: There are thoracic aortic calcifications consistent for atherosclerotic disease. There is no dissection or hematoma noted in the thoracic aorta. There are coronary arterial calcifications. No obvious central pulmonary embolism although this study was not performed with the pulmonary embolism protocol. CT/Chest WITH Contrast IMPRESSION: 1. Bilateral pleural effusions. 2. Along the left upper lobe pleural space, there is an infiltrate like mass measuring 46 x 14 mm. Neoplastic process is difficult to exclude given the patient''s history. Electronically Signed: Pablo Newman MD at 19:21 EST , Service support ,
== END ==
PROVIDERS: PCP Family Medicine; Visit Provider Nurse Practitioner Family
DX: R06.00 Dyspnea, unspecified (principal); C50.412 Malignant neoplasm of upper-outer quadrant of left female breast; Z17.0 Estrogen receptor positive status [ER+]
CPT/HCPCS: 71260; Q9967

== ENCOUNTER → 2021-10-30 11:04 | Outpatient (CLI) | payer BC, SELFPAY ==
[2021-04-10 15:56] VITALS: BMI 28.8
--- NOTE | 2021-10-30 11:12 | ECHODONC_ITS ---
Reason For Study: Procedure This was a 2D Doppler, Color Flow transthoracic echocardiogram. Myocardial strain analysis was performed in this exam to aid in the assessment of cardiac function. Exam performed in department. Left Ventricle Normal LV size. The estimated ejection fraction is 30 %. Septal motion consistent with IVCD. There is moderate global hypokinesis of the left ventricle. Right Ventricle Normal RV size. Normal systolic function. Atria Normal left atrium. Normal right atrium. Aortic Valve Trisinus/trileaflet aortic valve. Moderate focal aortic valve calcification. Peak aortic valve gradient 39 mmHg. Mean aortic valve gradient 20 mmHg. Mild aortic stenosis. Pulmonic Valve Normal pulmonic valve. Great Vessels Normal aortic root. The pulmonary artery is normal size. Normal inferior vena cava. Pericardium/Pleural No pericardial effusion. MMode/2D Measurements & Calculations LVIDd: 5.3 cm IVSd: 0.99 cm LVOT diam: 2.1 cm LVIDs: 4.7 cm LVPWd: 1.1 cm LVOT area: 3.5 cm2 RVDd: 3.0 cm FS: 11.9 % Ao root diam: 3.1 cm LAV(MOD-bp): 64.7 ml LVAd ap4: 39.1 cm2 LAV(MOD-bp) Indexed: 36.8 ml/m2 LVLd ap4: 8.7 cm LAV(MOD-sp2): 88.3 ml EDV(MOD-sp4): 146.4 ml LAV(MOD-sp4): 42.8 ml EDV(sp4-el): 148.7 ml LVAs ap4: 30.5 cm2 LVLs ap4: 8.7 cm ESV(MOD-sp4): 88.6 ml ESV(sp4-el): 91.4 ml EF(MOD-sp4): 39.5 % EF(sp4-el): 38.5 % SV(MOD-sp4): 57.8 ml SV(MOD-sp2): 52.0 ml LVAd ap2: 35.3 cm2 LVLd ap2: 8.2 cm EDV(MOD-sp2): 127.7 ml EDV(sp2-el): 128.9 ml LVAs ap2: 26.9 cm2 LVLs ap2: 8.0 cm ESV(MOD-sp2): 75.7 ml ESV(sp2-el): 76.1 ml EF(MOD-sp2): 40.7 % SV(sp4-el): 57.3 ml LA A4 area: 15.6 cm2 LA dimension(2D): 4.5 cm RA A4 area: 10.5 cm2 Doppler Measurements & Calculations MV E max eliu: 110.6 cm/sec Lat Peak E' Eliu: 7.8 cm/sec Med Peak E' Eliu: 5.2 cm/sec MV A max eliu: 97.2 cm/sec E/E' lat: 14.3 E/E' med: 21.4 MV E/A: 1.1 Ao V2 max: 315.9 cm/sec LV V1 max: 116.3 cm/sec SV(LVOT): 74.9 ml Ao max P.9 mmHg LV V1 max P.4 mmHg Ao V2 mean: 211.6 cm/sec LV V1 mean P.8 mmHg Ao mean P.4 mmHg LV V1 mean: 77.9 cm/sec Ao V2 VTI: 60.0 cm LV V1 VTI: 21.4 cm ANN(I,D): 1.2 cm2 ANN(V,D): 1.3 cm2 PA V2 max: 92.3 cm/sec ECHO/ONC Echo Complete Interpretation Summary Normal LV size. The estimated ejection fraction is 30 %. Septal motion consistent with IVCD. Mild aortic stenosis. Moderate focal aortic valve calcification. Compared to previous study, the left ventricular systolic function has worsened .. The global longitudinal strain is moderately abnormal. The global longitudinal strain = -1 1.2% (abnormal). Ordering Physician: Chung Bailey Referring Physician: Renato Crenshaw MD Performed By: Maria Luisa Jordan RDCS
== END ==
PROVIDERS: PCP Family Medicine; Referring Provider Internal Medicine Cardiovascular Disease; Visit Provider Internal Medicine Cardiovascular Disease
DX: R06.00 Dyspnea, unspecified (principal); I35.0 Nonrheumatic aortic (valve) stenosis; I34.0 Nonrheumatic mitral (valve) insufficiency; I10 Essential (primary) hypertension; E78.2 Mixed hyperlipidemia; I44.7 Left bundle-branch block, unspecified; C50.412 Malignant neoplasm of upper-outer quadrant of left female breast; C77.9 Secondary and unspecified malignant neoplasm of lymph node, unspecified; M81.8 Other osteoporosis without current pathological fracture; C41.9 Malignant neoplasm of bone and articular cartilage, unspecified; E87.6 Hypokalemia; Z17.0 Estrogen receptor positive status [ER+]
CPT/HCPCS: 93306; 93356

== ENCOUNTER → 2021-11-02 15:44 | Outpatient (CLI) | payer BC, SELFPAY ==
[2021-04-10 15:56] VITALS: BMI 27.3; BMI 28.8
--- NOTE | 2021-11-02 15:45 | BI_ITS ---
MAMMOGRAPHY - UNILATERAL SCREENING: RIGHT BREAST REASON FOR EXAM: Female, 60 years old. Routine annual screening examination (unilateral). PERTINENT HISTORY: Personal history of breast cancer. Prior left mastectomy and radiation therapy. TECHNIQUE: Digital unilateral breast rosa (3D mammographic acquisition) in the CC and MLO projections. 2-D mediolateral oblique (MLO) and craniocaudad (CC) views of both breasts were obtained. CAD: Full Field Digital Mammography with Computer Added Detection was performed. COMPARISON: Comparison is made with prior study dated 11/01/2020 and 10/21/2019. FINDINGS: Breast Composition: There are scattered areas of fibroglandular density. There are no dominant masses or suspicious calcifications. No other significant abnormalities are identified. There has been no significant change since the prior study. BI/SCREEN MAMM (CAD) W/ROSA UNI R IMPRESSION: Stable unilateral screening mammogram. Yearly follow-up mammogram recommended. (A) ASSESSMENT CATEGORY: BIRADS Category 1: Negative. A letter regarding these results will be sent to the patient by the facility within 30 days. Approximately 10% of breast cancers are not detected by mammography. A normal mammogram should not delay biopsy of a clinically suspicious abnormality. [id number] Electronically Signed: Albaro Atkinson MD at 8:29 EST , Service support ,
== END ==
PROVIDERS: PCP Family Medicine; Visit Provider Internal Medicine Hematology & Oncology
DX: Z12.31 Encounter for screening mammogram for malignant neoplasm of breast (principal)
CPT/HCPCS: 77063; 77067

== ENCOUNTER 2021-12-18 13:03 | Outpatient (CLI) | payer BC, SELFPAY ==
[2021-04-10 15:56] VITALS: BMI 28.8
[2021-12-18 13:53] LABS: Anion Gap 5 (5-15); BUN 25 mg/dL (7-18); BUN/Creat Ratio 26.2 RATIO (10-20); Calcium,Total 9.9 mg/dL (8.5-10.1); Chloride 106 mmol/L (98-107); Creatinine, Serum 0.96 mg/dL (0.55-1.02); EST Glomerular Filtration Rate 63 mL/min (>60); Est Glom Filt Rate - Afr Amer 77 mL/min (>60); Glucose 144 mg/dL (74-106); Potassium 3.7 mmol/L (3.5-5.1); Sodium Level 138 mmol/L (136-145)
== END 2021-12-18 23:59 | disposition short-term general hospital (02) ==
LOC: PAVLAB 13:04
PROVIDERS: PCP Family Medicine; Referring Provider Internal Medicine Cardiovascular Disease; Visit Provider Internal Medicine Cardiovascular Disease
DX: R19.7 Diarrhea, unspecified (principal); I50.21 Acute systolic (congestive) heart failure; R91.8 Other nonspecific abnormal finding of lung field; J90 Pleural effusion, not elsewhere classified; R06.00 Dyspnea, unspecified; Z79.899 Other long term (current) drug therapy
CPT/HCPCS: 36415; 80048

== ENCOUNTER 2022-01-23 07:04 | Outpatient (CLI) | payer BC, SELFPAY ==
[2021-04-10 15:56] VITALS: BMI 28.8
--- NOTE | 2022-01-23 07:17 | CT_ITS ---
HISTORY: Follow-up left upper lobe infiltration and pleural effusion. 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 TECHNIQUE: Helically acquired images were obtained of the chest following IV contrast. A radiation dose optimization technique was used for this scan. IV Contrast dosage and agent: 100 mL Isovue-300. # of images incl. paperwork: [id number]. COMPARISON: 10/23/2021. FINDINGS: CENTRAL AIRWAYS: Patent. LUNGS: Chronic mild scarring in the periphery of the right middle lobe. Decreased thickness of the left upper lobe anterolateral opacity. Mild residual scarring in the lingula and left lower lobe. PLEURA: No pneumothorax or pleural effusion. HEART AND PERICARDIUM: Heart size within normal limits. No significant pericardial effusion. Coronary artery disease noted. VESSELS: Aorta within normal limits in size and contour. No large central pulmonary embolism although study not performed with pulmonary embolism protocol. MEDIASTINUM AND AIMEE: No pathologically enlarged mediastinal or hilar lymphadenopathy. SOFT TISSUES: Stable 1.8 cm right thyroid nodule and small right thyroid calcified nodule. Left mastectomy and left axillary scarring. No pathologically enlarged axillary lymph nodes. UPPER ABDOMEN: Mild hiatal hernia. Colonic diverticulosis present. Cholecystectomy. 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 No suspicious osteoblastic or osteolytic lesion. CT/Chest WITH Contrast IMPRESSION: Decreased left upper lobe opacity with residual posttreatment fibrosis in the left anterior lung. Resolution of mild bilateral pleural effusions. Stable right thyroid nodules. Individualized dose optimization techniques were used for this CT. at 0942 Reported and signed by: Kathy Millan MD Electronically Signed: Kathy Millan MD at 9:41 EST ,
== END 2022-01-23 23:59 | disposition home or self-care (01) ==
PROVIDERS: PCP Family Medicine; Referring Provider Internal Medicine Hematology & Oncology; Visit Provider Internal Medicine Hematology & Oncology
DX: C41.9 Malignant neoplasm of bone and articular cartilage, unspecified (principal); C77.9 Secondary and unspecified malignant neoplasm of lymph node, unspecified; C50.412 Malignant neoplasm of upper-outer quadrant of left female breast; R91.8 Other nonspecific abnormal finding of lung field; Z17.0 Estrogen receptor positive status [ER+]
CPT/HCPCS: 71260; Q9967

== ENCOUNTER → 2022-01-29 07:53 | Day surgery (SDC) | payer BC, SELFPAY ==
[2021-04-10 15:56] VITALS: BMI 28.8
[2022-01-23 08:03] LABS: Absolute Lymphocyte Count 1.03 X10^3/uL (0.83-4.51); Absolute Neutrophil Count 4.1 X10^3/uL (2.0-7.7); Basophil# 0.04 X10^3/uL; Basophil% 0.7 % (0-1); Eosinophil# 0.21 X10^3/uL; Eosinophils% 3.5 % (0-5); Hematocrit 31.4 % (37-47); Hemoglobin 10.7 g/dL (12.0-15.0); Lymphocyte # 1.03 X10^3/ul (0.83-4.51); Lymphocyte % 17.2 % (19-41); Mean Corp Hgb Conc 34.1 g/dL (32-36); Mean Corpuscular Hgb 29.1 pg (27.0-32.0); Mean Corpuscular Volume 85.3 fL (81-99); Mean Platelet Vol. 9.9 fl (6.2-12.0); Monocyte# 0.57 X10^3/uL; Monocyte% 9.5 % (0-10); NRBC Flagged by Analyzer 0 % (0-5); Neutrophil % 68.6 % (47-70); Platelet Count 147 K/mm3 (150-450); RBC Distribution Width CV 14.8 % (11.6-14.6); RBC Distribution Width SD 45.3 fl (35.1-43.9); Red Blood Count 3.68 M/mm3 (4.2-5.4)
[2022-01-23 08:34] LABS: ALB/GLOB Ratio 0.9 RATIO (0.9-2.4); AST(SGOT) 20 U/L (15-37); Alanine Aminotransfer ALT/SGPT 36 U/L (13-56); Albumin, Serum 3.3 g/dL (3.2-5.0); Alkaline Phosphatase 40 U/L (45-117); Anion Gap 6 (5-15); BUN 23 mg/dL (7-18); BUN/Creat Ratio 31.9 RATIO (10-20); Calcium,Total 8.9 mg/dL (8.5-10.1); Chloride 104 mmol/L (98-107); Creatinine, Serum 0.72 mg/dL (0.55-1.02); EST Glomerular Filtration Rate 88 mL/min (>60); Est Glom Filt Rate - Afr Amer 106 mL/min (>60); Globulin 3.6 g/dL (2.2-4.2); Glucose 111 mg/dL (74-106); Potassium 3.9 mmol/L (3.5-5.1); Protein, Total 6.9 g/dL (6.4-8.2); Sodium Level 136 mmol/L (136-145)
[2022-01-26 07:31] VITALS: BMI 27.3
--- NOTE | 2022-01-29 09:10 | CL.D_ITS ---
Patient Name: JUANA SMART Study Date: 01/29/2022 Performing: Chung Bailey MD Ht: 64.17 inches 163 cm : 1960 Wt: 158.73 lbs 72 kg Age: 61 Gender: female BSA: 1.78 PROCEDURE(S) PERFORMED [id number])LHC/COR/LV CLINICAL PROFILE AND INDICATIONS Indications: Cardiomyopathy Heart Failure: None Stress/Imaging Stress/Image Study Performed: No CAD Presentations: Symptom unlikely to be ischemic. CONCLUSIONS Mild coronary artery disease with mild to moderate left ventricular systolic dysfunction and mild aor tic stenosis. RECOMMENDATIONS Medical therapy Repeat echocardiogram today for comparison. DESCRIPTION OF PROCEDURE The patient arrived to the procedure lab. The risks and benefits of the procedure as well as a full d escription of our services here and current unavailability of surgical backup were fully explained to the patient and/or their significant other prior to the catheterization. The Timeout was completed, verifying the correct patient and procedure. The patient's procedural site was prepped and draped in the usual fashion. Local anesthetic was given subcutaneously to right radial region with Lidocaine 2% . Using a modified Seldinger technique, arterial access was obtained via the right radial artery, a 6 Fr sheath was inserted. Right Coronary Artery selective angiography was then performed in multiple v iews using a 5 Fr. 4.0 Corning catheter. Left Coronary Artery selective angiography was performed in mu ltiple views using a 5 Fr. 4.0 Corning catheter. Left Ventriculography was performed in GIRON projection using a 5 Fr. Pigtail catheter. LV to AO pullback pressures were then recorded.The arterial sheath was pulled and a TR Band was applied for hemostasis 10cc air inserted. sheath flushed . CORONARY ANGIOGRAPHY DOMINANCE: Right Dominant LEFT HEART ASSESSMENT Left Ventricular Ejection Fraction: by LV Gram 40 % Global Hypokinesis - Mild LEFT MAIN: Angiographically normal LEFT ANTERIOR DESCENDING ARTERY: Mild luminal irregularities less than 30% CIRCUMFLEX ARTERY: Mild luminal irregularities RIGHT CORONARY ARTERY: Mild luminal irregularities less than 30% VALVE FINDINGS: Aortic Valve Calcification - mild Aortic Valve Stenosis - mild COMPLICATIONS No Complications PROCEDURE MEDICATIONS Fentanyl 50 mcg IV Versed 1 mg IV Versed 1 mg IV Oxygen: 2 L/min via nasal cannula Heparin diluted in 23cc Heparinized saline. Patient given 10cc IA of this solution. 01/29/2022 08:49: 45 Verapamil 2.5mg, Ntg 100mcgs, 2000 units of Heparin diluted in 23cc Heparinized saline. Patient give n 10cc IA of this solution. 01/29/2022 08:49:45 SUMMARY OF HEMODYNAMIC DATA Time AIR REST ECG 08:15:34 Art 128/63 (86) 08:41:27 AO 82/57 (68) SA 08:49:38 AO 91/53 (69) 08:54:03 LV 113/0, 2 08:56:01 LV 115/0, 3 08:56:07 LV 110/2, 5 08:56:48 LVp 113/3, 6 08:56:57 AOp 94/51 (69) 08:57:02 ECG 09:06:02 ECG 09:06:02 RM AIR REST 09:06:31 Signed By Chung Bailey MD On 01/29/2022 10:45:53 AM Signed By Chung Bailey MD On 01/29/2022 10:44:58 AM Signed By Chung Bailey MD On 01/29/2022 09:09:11 Chung Bailey MD
--- NOTE | 2022-01-29 09:15 | ECHOL_ITS ---
Reason For Study: Cardiomyopathy Procedure This was a limited 2D transthoracic echocardiogram. Exam done portable in clinical laboratory technician holding room. Left Ventricle Normal LV size. The estimated ejection fraction is 40 %. Septal motion consistent with IVCD. There is mild to moderate global hypokinesis of the left ventricle. Right Ventricle Normal RV size. Normal systolic function. Atria Normal left atrium. Normal right atrium. Pulmonic Valve Normal pulmonic valve. Great Vessels Normal aortic root. The pulmonary artery is normal size. Normal inferior vena cava. Pericardium/Pleural No pericardial effusion. MMode/2D Measurements & Calculations LVIDd: 4.6 cm IVSd: 1.1 cm Ao root diam: 3.4 cm LVIDs: 3.8 cm LVPWd: 1.3 cm FS: 17.6 % SV(MOD-sp4): 44.5 ml LVAd ap4: 34.3 cm2 LVAd ap2: 34.2 cm2 LVLd ap4: 8.7 cm LVLd ap2: 8.3 cm EDV(MOD-sp4): 117.4 ml EDV(MOD-sp2): 120.4 ml EDV(sp4-el): 115.4 ml EDV(sp2-el): 120.2 ml LVAs ap4: 26.1 cm2 LVAs ap2: 24.1 cm2 LVLs ap4: 8.1 cm LVLs ap2: 7.6 cm ESV(MOD-sp4): 72.9 ml ESV(MOD-sp2): 63.3 ml ESV(sp4-el): 71.3 ml ESV(sp2-el): 65.1 ml EF(MOD-sp4): 37.9 % EF(MOD-sp2): 47.4 % EF(sp4-el): 38.2 % SV(MOD-sp2): 57.1 ml SV(sp4-el): 44.1 ml LA dimension(2D): 4.3 cm ECHO/Echo, Limited Study Interpretation Summary Normal LV size. The estimated ejection fraction is 40 %. Septal motion consistent with IVCD. There is mild to moderate global hypokinesis of the left ventricle. Ordering Physician: Chung Bailey Referring Physician: Renato Crenshaw MD Performed By: Maria Luisa Jordan RDCS
== END ==
PROVIDERS: Nurse Practitioner Family; PCP Family Medicine; Referring Provider Internal Medicine Cardiovascular Disease; Visit Provider Internal Medicine Cardiovascular Disease
DX: I25.10 Atherosclerotic heart disease of native coronary artery without angina pectoris (principal); I42.9 Cardiomyopathy, unspecified; I50.20 Unspecified systolic (congestive) heart failure; I11.0 Hypertensive heart disease with heart failure; I35.0 Nonrheumatic aortic (valve) stenosis; E78.5 Hyperlipidemia, unspecified; Z87.891 Personal history of nicotine dependence; Z79.82 Long term (current) use of aspirin; Z79.899 Other long term (current) drug therapy
CPT/HCPCS: 36415; 80053; 85025; 93308; 93458; 99152; 99153; J7040; C1769; C1894; Q9967

== ENCOUNTER → 2022-04-24 | Outpatient (CLI) | payer BC, SELFPAY ==
[2021-04-10 15:56] VITALS: BMI 28.8
--- NOTE | 2022-04-24 08:19 | BD_ITS ---
STUDY: DUAL ENERGY X-RAY ABSORPTIOMETRY / DXA REASON FOR EXAM: Female, 61 years old. SCREENING TECHNIQUE: Bone Mineral Density (BMD) measurements of lumbar spine and right hip were obtained. COMPARISON: Comparison is made with prior study dated 04/19/2020. FINDINGS: Lumbar Spine (L1-L4): g/cm2 (1.091) / T-score (0.3) / Z-score (1.8) Findings are suggestive of normal bone density with a low fracture risk. Right Femur Total: g/cm2 (0.962) / T-score (0.2) / Z-score (1.1) Right Femoral Neck: g/cm2 (0.788) / T-score (-0.6) / Z-score (0.7) The T-Scores on the most recent prior examination were: Lumbar Spine (L1-L4): There has been worsening of bone density since the previous examination. Right Femur Total: which represents an improvement of 2.5%. BD/Dexa Bone Density Study IMPRESSION: The patient is considered normal as outlined below according to World Paul Organization (WHO) criteria with a low fracture risk. There has been worsening of bone density since the previous examination. Reference Information: The T-score is the number of standard deviations above or below the standard which is normal for young adults at their peak bone mineral density. The World Health Organization (WHO) interprets the T-scores as follows: Above -1 Normal bone density Between -1 and -2.5 Osteopenia Equal to / or below -2.5 Osteoporosis As a practical clinical guideline, osteopenia may be graded as follows: Mild -1 through -1.5 Moderate -1.6 through -2.0 Severe -2.1 through -2.4 The Z-score is the number of standard deviations above or below age-matched controls. A Z-score of less than -1.5 would be considered abnormal. References: 1. NIH Osteoporosis and Related Bone Diseases www osteo.org 2. International Society for Clinical Densitometry www iscd.org 3. National Osteoporosis Foundation www nof.org Electronically Signed: Albaro Atkinson MD at 8:53 EDT ,
== END | disposition home or self-care (01) ==
LOC: OPBD 08:10
PROVIDERS: PCP Family Medicine; Referring Provider Internal Medicine Hematology & Oncology; Visit Provider Internal Medicine Hematology & Oncology
DX: M81.8 Other osteoporosis without current pathological fracture (principal)
CPT/HCPCS: 77080

== ENCOUNTER → 2022-06-05 | Outpatient (CLI) | payer BC, SELFPAY ==
[2021-04-10 15:56] VITALS: BMI 28.8
--- NOTE | 2022-06-05 08:46 | ECHODONC_ITS ---
Reason For Study: DYSPNEA/SOB Procedure This was a 2D Doppler, Color Flow transthoracic echocardiogram. Myocardial strain analysis was performed in this exam to aid in the assessment of cardiac function. Exam performed in department. Left Ventricle Normal LV size. The estimated ejection fraction is 37 %. Septal motion consistent with IVCD. There is moderate global hypokinesis of the left ventricle. Right Ventricle Normal RV size. Normal systolic function. Atria Normal left atrium. Normal right atrium. Mitral Valve Bileaflet diffuse mitral valve thickening. Mild-Moderate (1-2+) eccentric mitral valve insufficiency. Tricuspid Valve Normal tricuspid valve. Aortic Valve Trisinus/trileaflet aortic valve. Moderate focal aortic valve thickening. Peak aortic valve gradient 48 mmHg. Mean aortic valve gradient 30 mmHg. Moderate aortic stenosis. Mild (1+) aortic valve insufficiency. Pulmonic Valve Normal pulmonic valve. Great Vessels Normal aortic root. The pulmonary artery is normal size. Normal inferior vena cava. Pericardium/Pleural No pericardial effusion. MMode/2D Measurements & Calculations LVIDd: 5.1 cm IVSd: 0.97 cm LVOT diam: 2.0 cm LVIDs: 4.3 cm LVPWd: 0.99 cm LVOT area: 3.1 cm2 RVDd: 3.1 cm FS: 15.7 % Ao root diam: 3.1 cm LAV(MOD-bp): 46.0 ml LVAd ap4: 38.4 cm2 LAV(MOD-bp) Indexed: 26.6 ml/m2 LVLd ap4: 9.2 cm LAV(MOD-sp2): 50.0 ml EDV(MOD-sp4): 135.3 ml LAV(MOD-sp4): 43.2 ml EDV(sp4-el): 136.7 ml LVAs ap4: 28.6 cm2 LVLs ap4: 8.5 cm ESV(MOD-sp4): 82.5 ml ESV(sp4-el): 82.4 ml EF(MOD-sp4): 39.0 % EF(sp4-el): 39.7 % SV(MOD-sp4): 52.7 ml SV(sp4-el): 54.3 ml LA A4 area: 16.2 cm2 LA dimension(2D): 4.1 cm RA A4 area: 12.8 cm2 Time Measurements MV dec time: 0.22 sec Doppler Measurements & Calculations MV E max eliu: 102.5 cm/sec Lat Peak E' Eliu: 6.9 cm/sec Med Peak E' Eliu: 5.2 cm/sec MV A max eliu: 112.7 cm/sec E/E' lat: 15.0 E/E' med: 19.9 MV E/A: 0.91 Ao V2 max: 347.1 cm/sec AI max eliu: 444.6 cm/sec LV V1 max: 91.7 cm/sec Ao max P.2 mmHg AI max P.1 mmHg LV V1 max P.4 mmHg Ao V2 mean: 260.0 cm/sec LV V1 mean P.8 mmHg Ao mean P.9 mmHg AI dec slope: 234.6 cm/sec2 LV V1 mean: 60.6 cm/sec Ao V2 VTI: 75.9 cm AI P1/2t: 555.2 msec LV V1 VTI: 21.5 cm ANN(I,D): 0.87 cm2 ANN(V,D): 0.81 cm2 SV(LVOT): 66.1 ml PA V2 max: 109.4 cm/sec ECHO/ONC Echo Complete Interpretation Summary Normal LV size. The estimated ejection fraction is 37 %. There is moderate global hypokinesis of the left ventricle. Mean aortic valve gradient 30 mmHg. Moderate aortic stenosis. Mild (1+) aortic valve insufficiency. The global longitudinal strain is moderately abnormal. The global longitudinal strain = -13.7% (abnormal). Ordering Physician: Chung Bailey Referring Physician: CASS ANAYA Performed By: Tracy Clifford RDCS
== END | disposition home or self-care (01) ==
LOC: CVS 08:45
PROVIDERS: PCP Family Medicine; Referring Provider Internal Medicine Cardiovascular Disease; Visit Provider Internal Medicine Cardiovascular Disease
DX: I34.0 Nonrheumatic mitral (valve) insufficiency (principal); R06.02 Shortness of breath; R06.00 Dyspnea, unspecified
CPT/HCPCS: 93306; 93356

== ENCOUNTER → 2022-07-24 | Outpatient (CLI) | payer BC, SELFPAY ==
[2021-04-10 15:56] VITALS: BMI 28.8
--- NOTE | 2022-07-24 06:53 | CT_ITS ---
EXAM: CT CHEST WITH INTRAVENOUS CONTRAST CLINICAL INDICATION: F/U [facility]KE OPACITY SEPT. 2021 F/U MIKE OPACITY SEPT. 2021 TECHNIQUE: Helically acquired images were obtained of the chest with intravenous contrast. This CT exam was performed using one or more of the following dose reduction techniques: automated exposure control, adjustment of the mA and/or kV according to patient size, and/or use of iterative reconstruction technique. This report was created using [employer] report generation technology. CONTRAST: IV 100mL Isovue-370 RADIATION DOSE: CTDIvol = 12.44 mGy, DLP = 406.29 mGy-cm COMPARISON: CT scan 01/23/2022. FINDINGS: LUNGS AND PLEURAL SPACES: There are 2 surgical clips as well as calcific scarring in the posterior pleural surface of the right midlung field, uncertain significance. The appearance is stable. There are mild fibrotic changes in the anterior left upper lobe, consistent with radiation fibrosis. The appearance is stable. No mass. No pneumothorax. HEART: Unremarkable. Heart size is normal. No pericardial effusion. No significant coronary artery calcifications. MEDIASTINUM: There is a small hiatal hernia. No mediastinal or hilar adenopathy. Esophagus is unremarkable. THYROID: The left lobe of the thyroid gland is either markedly hypoplastic or surgically absent. There our 7 mm and 1.9 cm nodules in the right lobe of the thyroid gland. BONES/JOINTS: There are multiple old healed right rib fractures. There are multilevel degenerative changes in the visualized spine. No suspicious lytic or blastic abnormality. SOFT TISSUES: The left breast is surgically absent. VASCULATURE: There is mild atherosclerotic calcification of the thoracic aorta. Thoracic aorta is non-dilated. No thoracic aortic dissection. No obvious central pulmonary embolism although this study was not performed with the pulmonary embolism protocol. GALLBLADDER AND BILE DUCTS: The gallbladder is surgically absent. CT/Chest WITH Contrast IMPRESSION: 1. Previous cholecystectomy and previous left mastectomy with left axillary lymph node dissection.. 2. Small hiatal hernia. 3. 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 4. No evidence for acute pathology. No visualized masses or metastatic disease. 5. 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 1.9 cm and 7 mm nodules in the right lobe of the thyroid gland. Recommend further evaluation with thyroid ultrasound, if not previously done. Electronically Signed: Ori Aleman MD at 8:12 EDT Reading Location ID and State: [facility] / [place] , Service support ,
[2022-07-24 08:15] LABS: CREATININE FINGERSTICK < 0.9 mg/dL (0.55-1.02); EGFR FINGERSTICK > 60.0000 mL/min (>60)
== END | disposition home or self-care (01) ==
PROVIDERS: PCP Family Medicine; Referring Provider Internal Medicine Hematology & Oncology; Visit Provider Internal Medicine Hematology & Oncology
DX: R91.8 Other nonspecific abnormal finding of lung field (principal)
CPT/HCPCS: 71260; Q9967

== ENCOUNTER → 2022-09-06 | Outpatient (CLI) | payer BC, SELFPAY ==
[2021-04-10 15:56] VITALS: BMI 28.8
--- NOTE | 2022-09-06 12:46 | US_ITS ---
STUDY: THYROID ULTRASOUND REASON FOR EXAM: Female, 61 years old. NODULE SEEN ON CT TECHNIQUE: Ultrasound evaluation of the thyroid was performed with real-time and static mccray-scale imaging. COMPARISON: None. FINDINGS: RIGHT LOBE: The right lobe of the thyroid gland measures 5.4 x 1.8 x 2.4 cm. There is a heterogeneous and nodular echotexture. There is a hyperechoic solid 1.1 x 1.3 x 1.0 cm nodule within the upper pole demonstrating internal vascularity. There is an additional 1.9 x 1.7 x 1.3 cm hyperechoic and solid nodule within the mid pole demonstrating internal vascularity as well. There is a 1.2 x 0.9 x 0.9 cm additional solid nodule with a hyperechoic rim that demonstrates internal vascularity. There is a 1.3 x 1.0 x 1.6 cm grossly simple appearing cyst within the lower pole. LEFT LOBE: The left lobe of the thyroid gland measures 2.0 x 0.7 x 0.8 cm. There is a homogeneous echotexture. There is a 0.4 x 0.4 x 0.4 cm solid nodule with a hypoechoic margin. ISTHMUS: The isthmus measures 0.23 centimeters. US/Thyroid IMPRESSION: Bilateral thyroid nodules, more pronounced on the right, measuring up to 1.9 x 1.7 x 1.3 cm within the right lobe. Electronically Signed: Estefany Petersen MD at 10:14 EDT ,
--- NOTE | 2022-09-06 13:10 | RAD_ITS ---
STUDY: X-RAY - PELVIS AND RIGHT HIP REASON FOR EXAM: Female, 61 years old. Palpable lump TECHNIQUE: 3 views of the pelvis and hip. COMPARISON: None. FINDINGS: There is a non-specific bowel gas pattern. Normal visualized soft tissue structures. Normal bilateral iliac wings, sacroiliac joints and visualized sacrum. Normal bilateral superior and inferior pubic rami. Normal pubic symphysis. Normal bilateral ischial tuberosities. Normal visualized femoral head. Normal acetabulum. Normal hip joint. Surgical hardware in the left femur free of complication RAD/HIP, UNI W/ Pelvis 2-3 Views IMPRESSION: Normal x-ray examination of the pelvis and right hip. Electronically Signed: Kiko Kaplan MD at 13:32 EDT ,
== END | disposition home or self-care (01) ==
LOC: US 12:43
PROVIDERS: PCP Family Medicine; Referring Provider Physician Assistant; Visit Provider Physician Assistant
DX: R22.41 Localized swelling, mass and lump, right lower limb (principal); E04.1 Nontoxic single thyroid nodule
CPT/HCPCS: 73502; 76536

== ENCOUNTER → 2022-09-07 | Outpatient (CLI) | payer BC, SELFPAY ==
[2021-04-10 15:56] VITALS: BMI 28.8
--- NOTE | 2022-09-07 15:25 | RAD_ITS ---
STUDY: X-RAY - RIGHT FEMUR REASON FOR STUDY: Female, 61 years old. LEG MASS TECHNIQUE: 2 view(s) of the femur. COMPARISON: None. FINDINGS: Normal visualized femur. Normal visualized soft tissue structure. RAD/Femur Min 2 Views IMPRESSION: Normal x-ray examination of the femur. Electronically Signed: Antonio Gaston MD at 16:42 EDT ,
== END | disposition home or self-care (01) ==
LOC: RAD 15:18
PROVIDERS: PCP Family Medicine; Referring Provider Physician Assistant; Visit Provider Physician Assistant
DX: E04.1 Nontoxic single thyroid nodule (principal)
CPT/HCPCS: 73552

== ENCOUNTER 2022-09-17 12:30 | Outpatient (RCR) | payer BC, SELFPAY ==
[2021-04-10 15:56] VITALS: BMI 28.8
--- NOTE | 2022-08-23 17:44 | HP.PTEVAL_ITS ---
Patient's Visit Information JUANA SMART is a 61 year old F referred to Physical Therapy by DESIRE MONTALVO with a diagnosis of R LBP sciatica. Date of Evaluation: 08/23/22 Physical Therapist: JANKI McgrathT, OCS, CSCS - Visit Plan Frequency: 3x /Week Duration: 4-6 Weeks Plan: 3x/week for 4 weeks for. 1. rollout anrd stretch B psoas and quads, flexion mobs LB, LB ROM. 2. NS focus in standing and core strength supine to stand adn HEP. 3. TENS with Mh as needed. - Subjective Is L AKA with prosthesis. Has LBP with DDD and bulging discs. Dr. Page wanted a fusion but high risk with heart failure so sent to another specialist who wants therapy first. R leg hurts back and numbness into lateral calf and toes. Sometimes LB hurts. it has been numb for 10 months or so. Pain gets to 8/10 adn is worse with walking and activity. Throbs at night. Used to walk 30 min lunch but can only do 10 now due to pain. Coughing or sneezing are Ok. No bowel or bladder problems. Sleep is Ok much of time but takes pain pill if it keeps her up, has had them 2 months and does not take often. Works at [employer] at [employer] job, Better sitting, walking alot is worse. Ankle swells up. Hobbies include camping and boating and can still do them but avoids a lot of activity. Basic aDLs and shower and bath are OK. Overdoing hoise work will make her sore. - Pain R LB and leg pain Pain Intensity (Out of 10): 0 Pain Intensity Range: 0, 8 - Objective L sided prosthesis hard to bend before VC and wide HEIDY. Bends Ok with VC. L trendelenberg. Hunched over thoracic adn forward head. L/S AROM ext max limited, flexion mod limited, SB min limited, L painful and extension painful LB. psoas and quad max tight B. - Slump, - SLR. reflexes R patella and achilles 2/3. Sensation distal R LE numby feeling. strength DF adn knee ext R 3+, HS 4-, hip 3+ abd and ext B. Hip ext ROM limited to barely neutral B. - Balance/Special Test Scores Oswestry Low Back Score: 10 - Goals Goal 1:: Walk bending prosthetic knee without VC and with Narrow HEIDY without antalgia. Goal Time Frame: 2-4 Weeks Goal 2:: LB aROM WFL and without pain Goal Time Frame: 2-4 Weeks Goal 3:: Pain level 0-2/10 at all times and 80% improved. Goal Time Frame: 2-4 Weeks Goal 4:: I management of condition with NS adn stretching and strengthening Goal Time Frame: 4-6 Weeks Goal 5:: oswestry dcore 5 or better. Goal Time Frame: 4-6 Weeks - Rehabilitation Potential Physical Therapy Diagnosis: R LBP from degnerative changes, gait changes and weakness, tightness. Rehabilitation Potential: Fair - Anticipated Interventions Patient/Client Instruction: Educate patient on: Condition, Plan of Care For the Purpose of:: To decrease pain, To increase ROM, To improve muscle performance and motor function, To improve performance and independence with ADL's, To improve ability of physical actions for home/community/work/leisure Therapeutic Exercise to Include: Strength training, Gait and locomotor training, Passive ROM, Active ROM, Dynamic Lumbar Stabilization For the Purpose of:: To decrease pain, To increase ROM, To improve nutrient delivery to tissue, To improve muscle performance and motor function, To increase tolerance to activity/condition/position Manual Therapy Techniques to Include: Mobilization, Passive ROM, Soft tissue mobilization For the Purpose of:: To decrease pain, To increase ROM TENS: Yes Thermo therapy (hot pack): Yes For the Purpose of:: To decrease pain Thank you for the opportunity to evaluate your patient. For Medicare and Medicare HMO plans, please review the plan of care and approve it. It will need to be FAXED BACK to us at [phone] for Medicare purposes. For Medicare only, by signing this I certify the plan of care. Please let me know if there are questions or concerns regarding this plan of care. Physician Signature: Date:__
--- NOTE | 2022-09-17 13:08 | HP.PTDCSUM ---
It has been my pleasure to treat JUANA SMART referred by DESIRE MONTALVO, with the diagnosis of R LBP sciatica for a total of 10 visit(s). Discharge Date: Please see the following information for a summary of their discharge status. Subjective: Pt states good response to last session, but quite panful and sore coming in today. States she's really not sure why. States some days she does feel better, but other days, she still has it across her LB and medial Right knee. R LB and leg pain Pain Intensity (Out of 10): 8 % Improvement: 20 Objective/Function: Pt did well with more seated and standing core/postural exs today. Pain remained minimal, but she was looser afterwards. Remains pretty weak t/o her LEs. Goal 1:: Walk bending prosthetic knee without VC and with Narrow HEIDY without antalgia. Goal Progress: Not Progressing Goal 2:: LB aROM WFL and without pain Goal Progress: Goal Met Goal 3:: Pain level 0-2/10 at all times and 80% improved. Goal Progress: Not Progressing Goal 4:: I management of condition with NS adn stretching and strengthening Goal Progress: Not Progressing Goal 5:: oswestry dcore 5 or better. Goal Progress: Not Progressing Plan: 3x/week for 4 weeks for. 1. rollout anrd stretch B psoas and quads, flexion mobs LB, LB ROM. 2. NS focus in standing and core strength supine to stand adn HEP. 3. TENS with Mh as needed. If there are questions or concerns regarding this patient's physical therapy, please feel free to call me at [phone]. Thank you for the referral of this patient. Sincerely, Mario Pack, DPT, OCS, CSCS Balance/Gait/Functional tests - Balance/Special Test Scores Oswestry Low Back Score: 13
== END 2022-09-17 13:29 | disposition home or self-care (01) ==
LOC: PT 12:30
PROVIDERS: PCP Family Medicine
DX: M54.50 Low back pain, unspecified (principal); G89.29 Other chronic pain
CPT/HCPCS: 97110; 97162; 97164

== ENCOUNTER → 2022-11-05 | Outpatient (CLI) | payer BC, SELFPAY ==
[2021-04-10 15:56] VITALS: BMI 28.8
--- NOTE | 2022-11-05 07:51 | BI_ITS ---
MAMMOGRAPHY - UNILATERAL SCREENING: RIGHT BREAST REASON FOR EXAM: Female, 61 years old. Routine annual screening examination (unilateral). PERTINENT HISTORY: Personal history of breast cancer. Prior left mastectomy with chemotherapy and radiation therapy. TECHNIQUE: Digital unilateral breast rosa (3D mammographic acquisition) in the CC and MLO projections. 2-D mediolateral oblique (MLO) and craniocaudad (CC) views of both breasts were obtained. CAD: Full Field Digital Mammography with Computer Added Detection was performed. COMPARISON: Comparison is made with prior study dated 11/02/2021 and 11/01/2020. FINDINGS: Breast Composition: There are scattered areas of fibroglandular density. There are no dominant masses or suspicious calcifications. No other significant abnormalities are identified. There has been no significant change since the prior study. BI/SCREEN MAMM (CAD) W/ROSA UNI R IMPRESSION: Stable unilateral screening mammogram. Yearly follow-up mammogram recommended. (A) ASSESSMENT CATEGORY: BIRADS Category 1: Negative. A letter regarding these results will be sent to the patient by the facility within 30 days. Approximately 10% of breast cancers are not detected by mammography. A normal mammogram should not delay biopsy of a clinically suspicious abnormality. [id number] Electronically Signed: Albaro Atkinson MD at 11:23 EST ,
== END | disposition home or self-care (01) ==
LOC: OPBI 07:49
PROVIDERS: PCP Family Medicine; Referring Provider Internal Medicine Hematology & Oncology; Visit Provider Internal Medicine Hematology & Oncology
DX: Z12.31 Encounter for screening mammogram for malignant neoplasm of breast (principal)
CPT/HCPCS: 77063; 77067

== ENCOUNTER → 2022-12-28 | Outpatient (CLI) | payer BC, SELFPAY ==
[2021-04-10 15:56] VITALS: BMI 28.8
--- NOTE | 2022-12-28 08:49 | ECHODONC_ITS ---
Reason For Study: Abn EKG Procedure This was a 2D Doppler, Color Flow transthoracic echocardiogram. Myocardial strain analysis was performed in this exam to aid in the assessment of cardiac function. Exam performed in department. Left Ventricle Normal LV size. Moderately severe global left ventricular systolic dysfunction. The estimated ejection fraction is 35 %. There is moderate global hypokinesis of the left ventricle. Right Ventricle Normal RV size. Normal systolic function. Atria The left atrium is moderately enlarged. Normal right atrium. Mitral Valve Bileaflet diffuse mitral valve thickening. Mild-Moderate (1-2+) eccentric mitral valve insufficiency. Tricuspid Valve Normal tricuspid valve. Mild (1+) tricuspid valve insufficiency. Pulmonary artery systolic pressure is 28 mmHg. Aortic Valve Trisinus/trileaflet aortic valve. Mild focal aortic valve thickening. Peak aortic valve gradient 42 mmHg. Mean aortic valve gradient 25 mmHg. Moderate aortic stenosis. Mild (1+) aortic valve insufficiency. Pulmonic Valve Normal pulmonic valve. Mild (1+) pulmonic valve insufficiency. Great Vessels Normal aortic root. The pulmonary artery is normal size. Normal inferior vena cava. Pericardium/Pleural No pericardial effusion. MMode/2D Measurements & Calculations LVIDd: 5.0 cm IVSd: 0.86 cm LVOT diam: 2.1 cm LVIDs: 4.6 cm LVPWd: 0.86 cm LVOT area: 3.5 cm2 RVDd: 2.7 cm FS: 7.6 % Ao root diam: 3.2 cm LAV(MOD-bp): 36.2 ml LVAd ap4: 33.5 cm2 ACS: 0.93 cm LAV(MOD-bp) Indexed: 21.2 ml/m2 LVLd ap4: 8.2 cm LAV(MOD-sp2): 44.7 ml EDV(MOD-sp4): 115.3 ml LAV(MOD-sp4): 26.4 ml EDV(sp4-el): 116.0 ml LVAs ap4: 24.6 cm2 LVLs ap4: 7.5 cm ESV(MOD-sp4): 67.8 ml ESV(sp4-el): 68.3 ml EF(MOD-sp4): 41.2 % EF(sp4-el): 41.1 % LVAd ap2: 33.5 cm2 SV(MOD-sp4): 47.5 ml SV(MOD-sp2): 46.5 ml LVLd ap2: 8.8 cm EDV(MOD-sp2): 111.5 ml EDV(sp2-el): 108.0 ml LVAs ap2: 23.8 cm2 LVLs ap2: 7.6 cm ESV(MOD-sp2): 65.1 ml ESV(sp2-el): 63.2 ml EF(MOD-sp2): 41.6 % SV(sp4-el): 47.6 ml LA dimension(2D): 4.1 cm LA A4 area: 11.4 cm2 RA A4 area: 9.7 cm2 Time Measurements MV dec time: 0.34 sec Doppler Measurements & Calculations MV E max eliu: 63.8 cm/sec Lat Peak E' Eliu: 10.6 cm/sec Med Peak E' Eliu: 6.0 cm/sec MV A max eliu: 102.4 cm/sec E/E' lat: 6.0 E/E' med: 10.6 MV E/A: 0.62 Ao V2 max: 324.3 cm/sec AI max eliu: 452.3 cm/sec MV dec slope: 186.0 cm/sec2 Ao max P.1 mmHg AI max P.8 mmHg Ao V2 mean: 235.4 cm/sec Ao mean P.6 mmHg AI dec slope: 225.7 cm/sec2 Ao V2 VTI: 71.5 cm AI P1/2t: 587.0 msec AV (velocity ratio): 0.32 ANN(I,D): 1.1 cm2 ANN(V,D): 1.2 cm2 LV V1 max: 106.9 cm/sec SV(LVOT): 81.1 ml PA V2 max: 95.0 cm/sec LV V1 max P.6 mmHg LV V1 mean P.8 mmHg LV V1 mean: 79.9 cm/sec LV V1 VTI: 22.9 cm TR max eliu: 249.7 cm/sec TR max P.9 mmHg ECHO/ONC Echo Complete Interpretation Summary Normal LV size. Moderately severe global left ventricular systolic dysfunction. The estimated ejection fraction is 35 %. Moderate aortic stenosis. Mean aortic valve gradient 25 mmHg. The global longitudinal strain is severely abnormal. The global longitudinal st rain = -11.1% (abnormal). The prior global longitudinal strain was -13.7 % . Ordering Physician: Chung Bailey Referring Physician: Renato Crenshaw Performed By: Maine Jones, CASSIDY, RVT
== END | disposition home or self-care (01) ==
LOC: CVS 08:49
PROVIDERS: PCP Family Medicine; Referring Provider Internal Medicine Cardiovascular Disease; Visit Provider Internal Medicine Cardiovascular Disease
DX: I34.0 Nonrheumatic mitral (valve) insufficiency (principal)
CPT/HCPCS: 93306; 93356

== ENCOUNTER → 2023-07-09 | Outpatient (CLI) | payer BC, SELFPAY ==
[2021-04-10 15:56] VITALS: BMI 28.8
[2023-07-09 12:33] LABS: T4 Free Direct 1.12 ng/dL (0.76-1.46); Thyroid Stim Hormone (TSH) 2.12 uIU/mL (0.358-3.74)
== END | disposition home or self-care (01) ==
LOC: PAVLAB 11:47
PROVIDERS: PCP Family Medicine; Referring Provider Nurse Practitioner Family; Visit Provider Nurse Practitioner Family
DX: E89.0 Postprocedural hypothyroidism (principal)
CPT/HCPCS: 36415; 84439; 84443

== ENCOUNTER → 2023-08-30 | Outpatient (CLI) | payer BC, SELFPAY ==
[2021-04-10 15:56] VITALS: BMI 28.8
--- NOTE | 2023-08-30 12:49 | EKG12_ITS ---
Test Reason : PRE PROCEDURE Blood Pressure : / mmHG Vent. Rate : 075 BPM Atrial Rate : 075 BPM P-R Int : 182 ms QRS Dur : 154 ms QT Int : 478 ms P-R-T Axes : 042 -22 120 degrees QTc Int : 533 ms Normal sinus rhythm Left bundle branch block Abnormal ECG Confirmed by DELIO ROSA, CHUNG ([id number]), associate editor LEONILA TREVINO ([id number]) on 09/03/2023 8:06:13 AM Referred By: Chung Kebede Confirmed By:CHUNG KEBEDE MD
--- NOTE | 2023-08-30 12:50 | RAD_ITS ---
EXAM: XR CHEST, 2 VIEWS CLINICAL INDICATION: cad TECHNIQUE: Frontal and lateral views of the chest. COMPARISON: CT chest, 07/24/2022 FINDINGS: LUNGS AND PLEURAL SPACES: Stable line coil along the posterior pleural margin of the right lower lobe. No focal airspace disease, pleural effusion, or pneumothorax. HEART: No significant abnormality. Cardiac silhouette not enlarged. MEDIASTINUM: Central airways and mediastinal contour are unremarkable. BONES/JOINTS: Degenerative changes in the spine. SOFT TISSUES: Surgical clips in the left chest wall soft tissues. VASCULATURE: Atherosclerosis. UPPER ABDOMEN: Postoperative changes in the right upper quadrant. RAD/Chest PA and Lateral IMPRESSION: No focal airspace disease, pleural effusion, or pneumothorax. Postoperative changes. Electronically Signed: Ziyad Burr DO at 23:29 EDT ,
--- NOTE | 2023-08-30 13:09 | ECHODONC_ITS ---
Reason For Study: CAD, , High risk meds Procedure This was a 2D Doppler, Color Flow transthoracic echocardiogram. Exam performed in department. Left Ventricle Normal LV size. The left ventricular ejection fraction is 30 %. There is moderate to severe global hypokinesis of the left ventricle. Right Ventricle Normal RV size. Normal systolic function. Atria The left atrium is mildly enlarged. Normal right atrium. Mitral Valve There is moderate mitral annular calcification. Moderately severe (3+) eccentric mitral valve insufficiency. Tricuspid Valve Normal tricuspid valve. Moderate (2+) tricuspid valve insufficiency. Pulmonary artery systolic pressure is 60 mmHg. Moderate pulmonary hypertension. Aortic Valve Trisinus/trileaflet aortic valve. Moderate focal aortic valve calcification. Peak aortic valve gradient 44 mmHg. Mean aortic valve gradient 23 mmHg. Mild (1+) aortic valve insufficiency. Pulmonic Valve Normal pulmonic valve. Great Vessels Normal aortic root. The pulmonary artery is normal size. Normal inferior vena cava. Pericardium/Pleural Small pericardial effusion. MMode/2D Measurements & Calculations LVIDd: 5.3 cm IVSd: 0.94 cm LVOT diam: 2.1 cm LVIDs: 4.6 cm LVPWd: 1.1 cm LVOT area: 3.3 cm2 RVDd: 3.5 cm FS: 13.6 % Ao root diam: 3.4 cm LAV(MOD-bp): 78.9 ml LVAd ap4: 42.2 cm2 LAV(MOD-bp) Indexed: 43.8 ml/m2 LVLd ap4: 9.0 cm LAV(MOD-sp2): 73.9 ml EDV(MOD-sp4): 161.6 ml LAV(MOD-sp4): 84.8 ml EDV(sp4-el): 167.4 ml LVAs ap4: 32.7 cm2 LVLs ap4: 8.2 cm ESV(MOD-sp4): 107.5 ml ESV(sp4-el): 109.8 ml EF(MOD-sp4): 33.5 % EF(sp4-el): 34.4 % SV(MOD-sp4): 54.1 ml SV(sp4-el): 57.6 ml LA A4 area: 24.4 cm2 LA dimension(2D): 4.0 cm RA A4 area: 12.5 cm2 TAPSE: 1.5 cm Doppler Measurements & Calculations MV E max eliu: 135.6 cm/sec Lat Peak E' Eliu: 8.3 cm/sec Med Peak E' Eliu: 3.5 cm/sec MV A max eliu: 104.1 cm/sec E/E' lat: 16.3 E/E' med: 38.3 MV E/A: 1.3 MV V2 max: 135.4 cm/sec MV P1/2t max eliu: 133.3 cm/sec Ao V2 max: 333.7 cm/sec MV max P.3 mmHg MV P1/2t: 70.2 msec Ao max P.6 mmHg MV V2 mean: 94.6 cm/sec Ao V2 mean: 229.8 cm/sec MV mean P.9 mmHg MV dec slope: 556.3 cm/sec2 Ao mean P.8 mmHg MV V2 VTI: 31.0 cm MVA(P1/2t): 3.1 cm2 Ao V2 VTI: 67.3 cm AV (velocity ratio): 0.30 MVA(VTI): 2.1 cm2 ANN(I,D): 0.99 cm2 ANN(V,D): 1.1 cm2 AI max eliu: 424.7 cm/sec LV V1 max: 108.1 cm/sec SV(LVOT): 66.5 ml AI max P.1 mmHg LV V1 max P.7 mmHg AI dec slope: 279.8 cm/sec2 LV V1 mean P.5 mmHg AI P1/2t: 444.5 msec LV V1 mean: 72.9 cm/sec LV V1 VTI: 20.1 cm PA V2 max: 74.6 cm/sec TR max eliu: 361.0 cm/sec TR max P.1 mmHg ECHO/ONC Echo Complete Interpretation Summary Normal LV size. The left ventricular ejection fraction is 30 %. Moderate focal aortic valve calcification. Mean aortic valve gradient 23 mmHg. Mild (1+) aortic valve insufficiency. Moderately severe (3+) eccentric mitral valve insufficiency. Pulmonary artery systolic pressure is 60 mmHg. Moderate pulmonary hypertension. Low-flow low gradient aortic stenosis. Compared to the previous echocardiogram the left ventricular function is worse and the extent of the mitral regurgitation is worse. The global longitudinal strain = -11.6% (abnorma l). Ordering Physician: Chung Bailey Referring Physician: Renato Crenshaw Performed By: Maria Luisa Jordan RDCS
== END | disposition home or self-care (01) ==
LOC: CVS 12:49
PROVIDERS: PCP Family Medicine; Referring Provider Internal Medicine Cardiovascular Disease; Visit Provider Internal Medicine Cardiovascular Disease
DX: R07.9 Chest pain, unspecified (principal); I35.0 Nonrheumatic aortic (valve) stenosis
CPT/HCPCS: 71046; 93005; 93306; 93356

== ENCOUNTER 2023-09-13 06:54 | Day surgery (SDC) | payer BC, SELFPAY ==
[2021-04-10 15:56] VITALS: BMI 28.8
[2023-08-30 16:12] LABS: Absolute Lymphocyte Count 1.66 X10^3/uL (0.83-4.51); Absolute Neutrophil Count 3.5 X10^3/uL (2.0-7.7); Basophil# 0.05 X10^3/uL; Basophil% 0.9 % (0-1); Eosinophil# 0.11 X10^3/uL; Eosinophils% 1.9 % (0-5); Hematocrit 38.7 % (37-47); Hemoglobin 13.1 g/dL (12.0-15.0); Lymphocyte # 1.66 X10^3/ul (0.83-4.51); Lymphocyte % 28.5 % (19-41); Mean Corp Hgb Conc 33.9 g/dL (32-36); Mean Corpuscular Hgb 30.9 pg (27.0-32.0); Mean Corpuscular Volume 91.3 fL (81-99); Mean Platelet Vol. 11.4 fl (6.2-12.0); Monocyte# 0.47 X10^3/uL; Monocyte% 8.1 % (0-10); NRBC Flagged by Analyzer 0 % (0-5); Neutrophil # 3.51 X10^3/uL (2.7-7.7); Neutrophil % 60.3 % (47-70); Platelet Count 231 K/mm3 (150-450); RBC Distribution Width CV 13.2 % (11.6-14.6); RBC Distribution Width SD 44.3 fl (35.1-43.9); Red Blood Count 4.24 M/mm3 (4.2-5.4); White Blood Count 5.8 K/mm3 (4.4-11.0)
[2023-08-30 16:46] LABS: Anion Gap 7 (5-15); BUN 13 mg/dL (7-18); BUN/Creat Ratio 18.3 RATIO (10-20); Calcium,Total 9.1 mg/dL (8.5-10.1); Chloride 108 mmol/L (98-107); Creatinine, Serum 0.71 mg/dL (0.55-1.02); EST Glomerular Filtration Rate 88 mL/min (>60); Est Glom Filt Rate - Afr Amer 107 mL/min (>60); Glucose 99 mg/dL (74-106); Potassium 4.1 mmol/L (3.5-5.1); Sodium Level 141 mmol/L (136-145)
[2023-09-12 07:33] VITALS: BMI 28.3
--- NOTE | 2023-09-13 08:28 | CL.D_ITS ---
Patient Name: JUANA SMART Study Date: 09/13/2023 Performing: Chung Bailey MD Ht: 64 inches 162.56 cm : 1960 Wt: 164.99 lbs 74.84 kg Age: 62 Gender: female BSA: 1.8 PROCEDURE(S) PERFORMED DC01-(79070)LHC/COR/LV CLINICAL PROFILE AND INDICATIONS Indications: Suspected CAD, Valvular Disease Heart Failure: None Stress/Imaging Stress/Image Study Performed: No CAD Presentations: Unstable angina. CONCLUSIONS Nonobstructive coronary artery disease unlikely to be causing angina; aortic valve stenosis mild to moderate; dilated nonischemic cardiomyopathy. RECOMMENDATIONS Medical therapy for now, repeat echocardiogram and also obtain dobutamine stress echocardiogram to assess for low-flow low gradient aortic stenosis. DESCRIPTION OF PROCEDURE The patient arrived to the procedure lab. The risks and benefits of the procedure as well as a full description of our services here and current unavailability of surgical backup were fully explained to the patient and/or their significant other prior to the catheterization. The Timeout was completed, verifying the correct patient and procedure. The patient's procedural site was prepped and draped in the usual fashion. Local anesthetic was given subcutaneously to right radial region with Lidocaine 2%. Using a modified Seldinger technique, arterial access was obtained via the right radial artery, a 6Fr sheath was inserted. Right Coronary Artery selective angiography was then performed in multiple views using a 5 Fr. 4.0 Colden catheter. Left Coronary Artery selective angiography was performed in multiple views using a 5 Fr. 4.0 Colden catheter. Left Ventriculography was performed in GIRON projection using a 5 Fr. Pigtail catheter. LV to AO pullback pressures were then recorded.The arterial sheath was pulled and a TR Band was applied for hemostasis CORONARY ANGIOGRAPHY DOMINANCE: Right Dominant LEFT HEART ASSESSMENT Left Ventricular Ejection Fraction: by LV Gram 35 % Global Hypokinesis - Moderate Depressed Left Ventricular systolic function LEFT MAIN: Angiographically normal LEFT ANTERIOR DESCENDING ARTERY: Mild luminal irregularities less than 30% CIRCUMFLEX ARTERY: Mild luminal irregularities RIGHT CORONARY ARTERY: Mild luminal irregularities VALVE FINDINGS: Aortic Valve Calcification - mild Aortic Valve Stenosis - moderate COMPLICATIONS No Complications PROCEDURE MEDICATIONS Versed 1 mg IV Fentanyl 50 mcg IV Oxygen: 2 L/min via nasal cannula Heparin given IA 09/13/2023 08:04:03 Verapamil 2.5mg, 3000 units of Heparin given IA 09/13/2023 08:04:03 SUMMARY OF HEMODYNAMIC DATA Time AIR REST ECG 07:07:43 AO 103/60 (79) SA 08:06:01 LV 119/1, 9 08:12:27 LV 121/4, 8 08:12:35 LV 110/4, 8 08:13:20 LVp 124/5, 18 08:13:54 LV 125/6, 18 08:14:11 LVp 119/7, 18 08:14:16 AOp 96/51 (68) 08:14:23 Signed By Chung Bailey MD On 09/13/2023 08:26:56 Chung Bailey MD
== END 2023-09-13 10:10 | disposition home or self-care (01) ==
PROVIDERS: PCP Family Medicine; Referring Provider Internal Medicine Cardiovascular Disease; Visit Provider Internal Medicine Cardiovascular Disease
DX: I25.110 Atherosclerotic heart disease of native coronary artery with unstable angina pectoris (principal); I11.0 Hypertensive heart disease with heart failure; I50.20 Unspecified systolic (congestive) heart failure; I42.0 Dilated cardiomyopathy; I35.0 Nonrheumatic aortic (valve) stenosis; E78.5 Hyperlipidemia, unspecified; I44.7 Left bundle-branch block, unspecified; Z79.899 Other long term (current) drug therapy; Z79.82 Long term (current) use of aspirin; Z87.891 Personal history of nicotine dependence
CPT/HCPCS: 36415; 80048; 85025; 93458; 99152; 99153; J7040; Q9967; C1769; C1894

== ENCOUNTER → 2023-11-06 | Outpatient (CLI) | payer BC, SELFPAY ==
[2021-04-10 15:56] VITALS: BMI 28.8
--- NOTE | 2023-11-06 07:13 | BI_ITS ---
MAMMOGRAPHY - UNILATERAL SCREENING: RIGHT BREAST REASON FOR EXAM: Female, 62 years old. Routine annual screening examination (unilateral). PERTINENT HISTORY: Personal history of breast cancer. Prior left mastectomy with radiation and chemotherapy. TECHNIQUE: Digital unilateral breast rosa (3D mammographic acquisition) in the CC and MLO projections. 2-D mediolateral oblique (MLO) and craniocaudad (CC) views of both breasts were obtained. CAD: Full Field Digital Mammography with Computer Added Detection was performed. COMPARISON: Comparison is made with prior examination dated November 05, 2022 and November 02, 2021. FINDINGS: Breast Composition: There are scattered areas of fibroglandular density. There are no dominant masses or suspicious calcifications. Stable small benign appearing bilateral axillary lymph nodes. No other significant abnormalities are identified. There has been no significant change since the prior study. BI/SCREEN MAMM (CAD) W/ROSA UNI R IMPRESSION: Stable unilateral screening mammogram. Yearly follow-up mammogram recommended. (A) ASSESSMENT CATEGORY: BIRADS Category 2: Benign. A letter regarding these results will be sent to the patient by the facility within 30 days. Approximately 10% of breast cancers are not detected by mammography. A normal mammogram should not delay biopsy of a clinically suspicious abnormality. [id number] Electronically Signed: Albaro Atkinson MD at 9:10 EST ,
== END | disposition home or self-care (01) ==
LOC: OPBI 07:04
PROVIDERS: PCP Family Medicine; Referring Provider Internal Medicine Hematology & Oncology; Visit Provider Internal Medicine Hematology & Oncology
DX: Z12.31 Encounter for screening mammogram for malignant neoplasm of breast (principal)
CPT/HCPCS: 77063; 77067